=== PATIENT | female | born 1945 | race African-American/Black ===

== ENCOUNTER 2024-03-28 23:45 | Inpatient (IN) | payer OTHER, SELFPAY ==
[2024-03-28 17:27] VITALS: BP 120/81
[2024-03-28 17:48] LABS: % Basophils 0.3 % (0-2); % Eosinophils 0.6 % (0-6); % Immature Granulocytes 0.4 % (0-0.5); % Lymphocytes 11.5 % (20.5-51.1); % Monocytes 8.2 % (1.7-9.3); Absolute Eosinophils 0.1 10^3/uL (0-0.7); Absolute Lymphocytes 1.2 10^3/uL (1.2-3.4); Absolute Monocytes 0.8 10^3/uL (0.1-0.6); Hematocrit 34.4 % (37.0-47.0); Hemoglobin 12.1 g/dL (12.0-16.0); Mean Corp Hgb Conc. 35.2 g/dL (33.0-37.0); Mean Corpuscular Hgb 29.8 pg (27.0-31.0); Mean Corpuscular Volume 84.7 fL (81.0-99.0); Mean Platelet Volume 9.7 fL (7.4-10.4); Nucleated Red Blood Cells % 0 %; Platelet Count 206 10^3/uL (130-400); Red Blood Cell Count 4.06 10^6/uL (4.20-5.40); Red Cell Dist. Width 14.2 % (11.5-14.5); White Blood Cell Count 10.1 10^3/uL (4.8-10.8)
[2024-03-28 18:06] LABS: ALT (SGPT) 10 U/L (0-35); AST (SGOT) 21 U/L (14-36); Alkaline Phosphatase 86 U/L (38-126); Blood Urea Nitrogen 10 mg/dl (7-17); Calcium 9.5 mg/dl (8.4-10.2); Carbon Dioxide 20 mmol/L (22-30); Chloride 105 mmol/L (98-107); Glucose 138 mg/dl (70-99); Lipase 44 U/L (23-300); Potassium 3.6 mmol/L (3.5-5.1); Sodium 141 mmol/L (135-145); Total Bilirubin 3.4 mg/dl (0.2-1.3); Total Protein 6.7 g/dl (6.3-8.2); eGFR > 60.00
[2024-03-28 19:23] VITALS: BP 148/87
--- NOTE | 2024-03-28 19:58 | ED.GENMED ---
History of Present Illness
General
Chief Complaint: Change in Mental Status
Source: patient and family (Daughter)
Exam Limitations: dementia
Time Seen by Provider: 03/28/24 19:23
History of Present Illness
History of Present Illness:
This is a 78 year old female that comes in with c/o abd pain. Daughter states that she has not been eating or drinking for the past 2 weeks. State that she has gotten weak and more disoriented. State that she took her teeth out and then she started
with vomiting. State that she has c/o left sided abd pain. States that today she started with a fever. Denies any chills, chest pain,SOB, diarrhea, headache, dizziness, urinary burning.
Past History
Past History
ED Past Medical History: Hypercholesterolemia, NIDDM, Psychiatric (Bipolar ) and Other (Severe chronic back pain, Dementia, Hiatal hernia, IBS, Panreatitis, )
ED Past Surgical History: Gynecological (Hysterectomy), Orthopedic (Bilateral knee replacement, Bilateral hip replacement, Carpal tunnel, Laminectomy) and Other (Neuro stimulator implantation,)
Social History
Tobacco: Non-smoker
Alcohol: None
Personal:
Living: alone (Apartment in a [place] and over community)
Family History
Family History: Diabetes
Review of Systems
Review of Systems
All Other Systems: ROS reviewed and negative except as documented in HPI and ROS
Constitutional: Reports fever; Denies chills
EENT: Reports no symptoms
Respiratory: Reports no symptoms; Denies cough or trouble breathing
Cardiac: Reports no symptoms; Denies chest pain
ABD/GI: Reports abdominal pain, nausea and vomiting; Denies diarrhea
: Reports no symptoms; Denies dysuria, frequency or urgency
Musculoskeletal: Reports no symptoms
Skin: Reports no symptoms
Neurological: Reports no symptoms; Denies dizzy or headache
Psychiatric: Reports no symptoms
Phy Exam
General Physical Exam
General Presentation: no apparent distress
General age: appears stated age
General Skin: warm and dry
General Habitus: elderly
General Mental: usual mental status
General Hydration: dry mucous membranes
ENT Exam
ENT Exam: TM's normal, pharynx normal and neck supple
Eye Exam
Eye Exam: EOMI
Cardiovascular Exam
Cardiovascular Exam: regular rate/rhythm, no edema and normal peripheral pulses
Pulmonary Exam
Pulmonary Exam: lungs clear, no respiratory distress, no rales, chest non tender, no crackles, no rhonchi, no wheezing and no cough
Gastrointestinal Exam
Gastrointestinal Exam: normal bowel sounds, soft, no organomegaly, no pulsatile mass, non distended and tender (Slight left sided and mid abd tenderness with palpation)
Musculoskeletal Exam
Musculoskeletal Exam: full ROM and no edema
Skin Exam
Skin Exam: normal color, warm/dry, no rash and no petechia
Psychiatric Exam
Psychiatric Exam: normal mood/affect
Course
Orders/Labs/Results
Orders:
Orders
03/28/24 17:38
Complete Blood Count/With Diff Urgent
Comprehensive Metabolic Panel Urgent
Lipase Urgent
03/28/24 19:56
CT Abd/pelvis W Iv Cont Urgent
Comment:
Reason For Exam: LEFT SIDED ABD PAIN
0.9% Sodium Chloride 1000 ml [Nss] 1,000 ml IV BOLUS
Ondansetron Injectable [Zofran] 4 mg IV NOW STA
03/28/24 20:28
Urinalysis Reflex To Culture Urgent
Date Specimen was Collected: 03/28/24
Time Specimen was Collected: 20:01
Urine Microscopic Reflex Cult Urgent
Urine Culture Urgent
LYNN Source: U
Specimen Description:
Date Specimen was Collected: 03/28/24
Time Specimen was Collected: 20:01
03/28/24 20:40
Straight Cath As Directed
Frequency: One time now
03/28/24 21:59
CR Chest - 2 Views Urgent
Comment:
Reason For Exam: Fever
03/28/24 22:38
COVID-19 Antigen Urgent
Source: Nasal Swab
03/28/24 22:46
Azithromycin 500 mg/250 ml [Zithromax Infusion] 500 mg in 250 ml IV NOW
CefTRIAXone [Rocephin] 1,000 mg IV NOW STA
03/28/24 23:39
0.9% Sodium Chloride [Nss (Preservative Free)] 10 ml IV NOW STA
Pantoprazole [Protonix IV] 40 mg IV NOW STA
03/29/24 08:00
Pantoprazole [Protonix IV] 40 mg IV DAILY
Abnormal Lab Results
03/28/24 03/28/24
17:38 20:28
RBC 4.06 L 10^6/uL
(4.20-5.40)
Hct 34.4 L %
(37.0-47.0)
Absolute Neuts (auto) 8.0 H 10^3/uL
(1.4-6.5)
Absolute Monos (auto) 0.8 H 10^3/uL
(0.1-0.6)
Neutrophils % 79.0 H %
(42.2-75.2)
Lymphocytes % 11.5 L %
(20.5-51.1)
Carbon Dioxide 20 L mmol/L
(22-30)
Glucose 138 H mg/dl
(70-99)
Total Bilirubin 3.4 H mg/dl
(0.2-1.3)
Urine Ketones 2+ A
(Negative)
Urine Nitrite (Reflex) Positive A
(Negative)
Urine Bilirubin 2+ A
(Negative)
Urine Urobilinogen 4+ A
(Neg - 1+)
Leukocyte Esterase Rfl Trace A
(Negative)
Urine Bacteria (Reflex) Few A
(Negative)
03/28/24 17:38
03/28/24 17:38
Carbon dioxide slightly low. Hyperglycemia. Total braydon elevation (elevated in the past but not as high), Lipase normal at 44 COVID negative
Vital Signs
Initial and Last Documented VS:
Initial Vital Signs
Temp Pulse Resp BP Pulse Ox
100.6 F H 102 20 120/81 98
03/28/24 17:27 03/28/24 17:27 03/28/24 17:27 03/28/24 17:27 03/28/24 17:27
Last Documented Vital Signs
Temp Pulse Resp BP Pulse Ox
98.1 F 84 20 118/74 98
03/28/24 21:37 03/28/24 22:40 03/28/24 17:27 03/28/24 22:40 03/28/24 22:40
MDM/Problems Addressed
Differential Diagnosis Includes:
Gallbladder disease. Diverticulitis, UTI
MDM/Problems Addressed:
This is a 78 year old female that comes in with c/o abd pain. Daughter states that she has not been eating and feels that her dementia is worse.
Will check labs, urine, CT scan, give IV fluids and Zofran for her nausea
Back into see patient and son. Daughter has gone home. explained that the patient has a left lower lobe Pneumonia. Explained that her pulse ox is normal and that she could go home on antibiotics. Son states that she lives alone and her Dementia is
getting worse. States that there is no one there to make sure she is taking her medication. Will need to admit patient. Hospitalist notified.
Chronic conditions affecting care:
Dementia
Acute Exacerbation and/or Progression of Chronic Illness:
NA
*Radiology
Radiology exam reviewed: radiology read reviewed (CT-No significant acute abnormality identified in the abdomen or pelvis as described above. Chest-Left lower lobe Pneumonia)
*Pulse Oximetry
Patient hypoxic: no
*EKG
Interpreted by ED Provider?: NA
Rate: EKG- N/A
*Battery Tester Interpretation
Rate: Battery Tester- N/A
*Critical Care Note
Total Time (30-74mins, 75-104mins- exclusive of procedures): Not Applicable
ED Attending Note
-
Portions of this chart may have been created with voice recognition software.� Occasional wrong word or��sound alike� substitutions may have occurred due to the inherent limitations of voice recognition software.
Discharge Plan
Departure
Patient Disposition: Admit
Date of Disposition: 03/28/24
Time of Disposition: 22:50
Admit to: Med/Surg
Presentation/result/management discussed w/ accepting MD/DO: Hospitalist
Patient with high blood pressure during this ER visit?: No
Condition: Good
Covid-19: Negative COVID-19
Discharge Problem:
Left lower lobe pneumonia, Weakness, Dementia
Interventions
Interventions:
*Risk Screen - Suicide Last Done: 03/28/24 20:36
*Neglect/Abuse Screening Last Done: 03/28/24 20:36
ED- Neurological Assessment Last Done: 03/28/24 20:38
[2024-03-28 20:00] VITALS: BP 115/68
[2024-03-28 20:40] LABS: Urine Albumin Trace (Neg - Trace); Urine Bilirubin 2+ (Negative); Urine Character Clear (Clear); Urine Color Yellow; Urine Glucose Negative (Negative); Urine Ketone 2+ (Negative); Urine Leukocyte Trace (Negative); Urine Nitrite Positive (Negative); Urine Occult Blood Negative (Negative); Urine Specific Gravity 1.025 (<1.030); Urine Urobilinogen 4+ (Neg - 1+)
[2024-03-28 20:45] LABS: Urine Bacteria Few (Negative); Urine Mucus Many; Urine Red Blood Cell 0-2 /HPF (0-2); Urine Squamous Cell >30 /LPF (Few); Urine White Cell 0-2 /HPF (0-5)
[2024-03-28] MEDS: ZOFRAN 4 MG IV (21:04)
[2024-03-28] MEDS: NSS 1000 IV (21:05)
[2024-03-28 22:39] VITALS: BP 118/74
[2024-03-28 22:40] VITALS: BP 118/74
[2024-03-28 23:00] VITALS: BP 127/72
[2024-03-28 23:00] LABS: COVID-19 Antigen Negative (Negative)
--- NOTE | 2024-03-28 23:15 | HPS.HSE ---
Family Physician
-
Family Physician: Az Red MD
Chief Complaint
-
Cough, left and right upper abdominal pain, decreased appetite
History of Present Illness
78-year-old female from home where she lives alone in her condo complaining of coughing today and left and right upper abdominal pain. Her son is at bedside and states she has had decreased oral intake over the past 2 weeks. While here in the ER
she had an episode of vomiting. She was febrile here in the ER at 100.6 F she complains of left and right upper abdominal pain on palpation, although CT abdomen pelvis is negative. She is not complaining of any indigestion, diarrhea. She denies
headache, sore throat chest pain, shortness of breath, diarrhea ,dizziness or urinary symptoms. She has past medical history of HLD, DM2 bipolar disorder, severe chronic back pain, neurostimulator implant, dementia, hiatal hernia, IBS,
pancreatitis,nonbleeding erosions in gastric antrum
Medical History
Past Medical History
Past Medical History: Reports Other
Additional Past Medical History:
HLD
DM2-diet controlled
bipolar disorder
severe chronic back pain
neurostimulator implant with removal
dementia short-term mild�moderate
nonbleeding erosions in gastric antrum 01/11/2020
hiatal hernia
IBS
pancreatitis
Past Surgical History: Reports Other
Additional Past Surgical History:
Neurostimulator implant lumbar with removal per son
Laminectomy
Bilateral hip replacement
Bilateral knee replacement
Hysterectomy
CTR
Appendectomy 03/01/2020
Social History
Tobacco: Non-smoker
Alcohol: None
Drug: None
Personal: Single
Living: Alone (In a condo)
Employment: Retired
Family History
Family History: Unable to Obtain
Allergies / Home Medications
Allergies reflects when Allergies were last updated in [facility].
Home Medications with original date entered in [facility]
Allergy/Medication List:
Allergies
Allergy/AdvReac Type Severity Reaction Status Date / Time
No Known Allergies Allergy Verified 03/28/24 17:32
Home Medications
atorvastatin 10 mg tablet 10 mg PO HS High Cholesterol 04/25/23
donepezil 5 mg tablet 5 mg PO HS 03/28/24
naproxen 500 mg tablet 500 mg PO BID 03/28/24
Review of Systems
-
History Source: Patient and Family (Son Leonid at bedside)
A 12 point ROS was completed and negative except as noted: Yes
Constitutional: Reports Fever and Chills; Denies Fatigue
EENT: Denies Sore Throat or Runny Nose
Respiratory: Reports Cough; Denies Trouble Breathing
Cardiac: Denies Chest Pain, Diaphoresis, Palpitations or Syncope
Abdomen/GI: Reports Abdominal Pain (Left and right upper abdomen), Nausea and Vomiting (X 1 here in ER); Denies Diarrhea, Constipated, Bloody Stools or Black Stools
: Denies Dysuria, Frequency, Flank Pain, Incontinence or Difficulty Voiding
Musculoskeletal: Denies Joint Pain or Edema
Skin: Denies Itching or Rash
Neurological: Denies Dizzy, Headache or Weakness
Endocrine: Reports No Symptoms
Hematologic/Lymphatic: Reports No Symptoms
Psych: Reports Calm
Physical Exam
Vital Signs
Vital Signs
Temp Pulse Resp BP Pulse Ox
98.1 F 84 20 118/74 98
03/28/24 21:37 03/28/24 22:40 03/28/24 17:27 03/28/24 22:40 03/28/24 22:40
Physical Exam
General: Comfortable, Conversant and Fever; No Chills
HEENT: NormoCephalic, Anicteric, Moist mucous membranes, PERRLA, [place] Conjunctivae and No Ptosis
Respiratory: Rales (With some rhonchi left lower lung base right CTA)
Cardiac: S1/S2 and Regular Rhythm; No Murmur, Rub, Gallop or Peripheral Edema
Breast: Deferred by me
GI: Soft, Non Distended, Normal Bowel Sounds, Tender (Entire upper abdomen) and No Hepatosplenomegaly
Rectal: Deferred by Provider
Genito-urinary: Deferred by me
Musculoskeletal: No Clubbing, No Cyanosis and No Edema
Skin: Warm and Dry; No Rash or Jaundice
Neuro: AO x 3 (Has dementia with short-term memory impairment remember some of past history thinks she still lives in a house versus a condo), Cranial Nerves Intact and No Sensory Deficits; No Slurred Speech, Facial Droop, Tremors or Sedated
Psych: Calm
Laboratory Results
-
03/28/24 17:38
03/28/24 17:38
Laboratory Results
Total Bilirubin 3.4 mg/dl (0.2-1.3) H 03/28/24 17:38
AST 21 U/L (14-36) 03/28/24 17:38
ALT 10 U/L (0-35) 03/28/24 17:38
Alkaline Phosphatase 86 U/L (38-126) 03/28/24 17:38
Lipase 44 U/L (23-300) 03/28/24 17:38
Data Reviewed
-
Diagnostic Radiology: Report Reviewed by me
CT Scan: Report Reviewed by me
Lab Data: Labs Reviewed by me
Impression/Plan
-
Impression/plan:
Admit to MedSurg
#Left lower lobe pneumonia
Temp 100.6 F, HR 102, BP 118/74
-COVID-negative
-IV Rocephin, p.o. Zithromax
-Incentive spirometry
-Follow CBC, CMP
-Consult PT/OT/case management
CXR left lower lobe pneumonia
#Left and right upper abdominal pain secondary to likely gastritis from naproxen use with past history of nonbleeding erosions in gastric antrum
- HOLD Naproxen 500 mg twice daily
-Will add IV PPI
-IV Zofran as needed
-Advance diet as tolerated
Endoscopy 01/02/2020 nonbleeding erosive erosions in the gastric antrum, hiatal hernia medium sized, diaphragmatic hernia
#Dementia short-term dementia
-Lives alone in her own condo oriented to name, son, daughter knows some of history
-Continue Aricept 5 mg at bedtime at at bedtime
#HLD
-Continue atorvastatin 10 mg at bedtime
#DM2 former now diet controlled
-Check HgbA1c BS 138
#Bipolar disorder
-No current meds
#Severe chronic back pain
#neurostimulator implant with removal
-Tylenol as needed
Other PMH:
Hx hiatal hernia
Hx IBS
hx pancreatitis
DVT prophylaxis
Scd
Full code per son Leonid at bedside who is POA
--- NOTE | 2024-03-28 23:33 | W.PN.UPDATE ---
Addendum entered and electronically signed by Юлия Lyle MD 03/28/24 23:40:
Abdominal pain could be due to gastritis given history of gastric erosions previously. Start PPI.
Original Note:
Update Note
Progress Note Update
This is an addendum to the H&P written by Vita Espinoza on 03/28/2024. Patient seen and examined independently with [facility].
78-year-old female past medical history of IBS with constipation, hiatal hernia, dementia, bipolar depression, type 2 diabetes, chronic back pain with neurostimulator since removed, hyperlipidemia, iron deficiency anemia, presenting with abdominal
pain and an episode of vomiting today. She had fever today. She did have cough at home.
Left lower base crackles on examination. Low-grade fever here. Chest x-ray showed left lower lobe pneumonia. CT abdomen pelvis unremarkable. Urinalysis unremarkable. COVID-negative. Ceftriaxone/azithromycin for pneumonia.
[2024-03-28] MEDS: PROTONIX IV 40 MG IV (23:59)
[2024-03-29] VITALS: BP 130/86
[2024-03-29] MEDS: ZITHROMAX INFUSION 250 IV
[2024-03-29 01:00] VITALS: BP 116/68
[2024-03-29 05:55] LABS: % Basophils 0.4 % (0-2); % Eosinophils 0.2 % (0-6); % Immature Granulocytes 0.3 % (0-0.5); % Lymphocytes 11.6 % (20.5-51.1); % Monocytes 9.8 % (1.7-9.3); % Neutrophils 77.7 % (42.2-75.2); Absolute Lymphocytes 1.1 10^3/uL (1.2-3.4); Absolute Monocytes 0.9 10^3/uL (0.1-0.6); Absolute Neutrophils 7.2 10^3/uL (1.4-6.5); Hemoglobin 10.6 g/dL (12.0-16.0); Mean Corp Hgb Conc. 34.2 g/dL (33.0-37.0); Mean Corpuscular Hgb 29.4 pg (27.0-31.0); Mean Corpuscular Volume 85.9 fL (81.0-99.0); Mean Platelet Volume 9.5 fL (7.4-10.4); Nucleated Red Blood Cells % 0 %; Platelet Count 175 10^3/uL (130-400); Red Blood Cell Count 3.61 10^6/uL (4.20-5.40); White Blood Cell Count 9.2 10^3/uL (4.8-10.8)
[2024-03-29 06:00] VITALS: BMI 25.2
[2024-03-29 06:21] LABS: ALT (SGPT) < 10 U/L (0-35); AST (SGOT) 18 U/L (14-36); Albumin 3.4 g/dl (3.5-5.0); Alkaline Phosphatase 65 U/L (38-126); Blood Urea Nitrogen 10 mg/dl (7-17); Calcium 8.6 mg/dl (8.4-10.2); Carbon Dioxide 23 mmol/L (22-30); Chloride 108 mmol/L (98-107); Estimated Creatinine Clearance 57 ml/min; Glucose 105 mg/dl (70-99); Potassium 3.5 mmol/L (3.5-5.1); Sodium 146 mmol/L (135-145); Total Bilirubin 2.5 mg/dl (0.2-1.3); Total Protein 5.9 g/dl (6.3-8.2); eGFR > 60.00
[2024-03-29 07:06] LABS: Glucose - Point of Care 104 mg/dl (70-99)
[2024-03-29 08:30] VITALS: BP 115/63
[2024-03-29] MEDS: ZITHROMAX 250 MG PO (10:18)
[2024-03-29] MEDS: NSS (PRESERVATIVE FREE) 10 ML IV ×2 (10:19)
[2024-03-29] MEDS: PROTONIX IV 40 MG IV (10:19)
[2024-03-29 10:47] VITALS: BP 95/54; PULSE 79; O2SAT 97
[2024-03-29 11:46] LABS: Glucose - Point of Care 98 mg/dl (70-99)
--- NOTE | 2024-03-29 12:07 | W.PN.HOSP.TC ---
Today's Communication/Plan
-
IV abx
monitor po tolerance
IVF for now
trend bmp
pt/ot
cm
Assessment / Plan
Assessment / Plan
#Left lower lobe pneumonia
#Sepsis 2/2 above-poa
Temp 100.6 F, HR 102, BP 118/74
-COVID-negative
-IV Rocephin, p.o. Zithromax
-Incentive spirometry
-Follow CBC, CMP
-Consult PT/OT/case management
-CXR left lower lobe pneumonia
#Left and right upper abdominal pain secondary to likely gastritis from naproxen use with past history of nonbleeding erosions in gastric antrum
-HOLD Naproxen 500 mg twice daily
-Will add IV PPI
-IV Zofran as needed
-Advance diet as tolerated
#Hypernatremia likely 2/2 dec po intake
-started D5W
-trend bmp
#Dementia short-term dementia
-Lives alone in her own condo oriented to name, son, daughter knows some of history
-Continue Aricept 5 mg at bedtime at at bedtime
-may require placement. CM
#HLD
-Continue atorvastatin 10 mg at bedtime
#DM2 former now diet controlled
-Check HgbA1c BS 138
#Bipolar disorder
-No current meds
#Severe chronic back pain
#neurostimulator implant with removal
-Tylenol as needed
Other PMH:
Hx hiatal hernia
Hx IBS
hx pancreatitis
DVT prophylaxis
Scd
Full code per son Leonid at bedside who is POA
Anticipated Discharge: Within 24 hours
Subjective/Interval History
-
Date of Service: March 29, 2024
Denies any abdominal pain currently
On room air
Denies any chest pain or shortness of breath
Objective Data
-
Labs:
Laboratory Results
03/29/24
05:15
WBC 9.2
Hgb 10.6 L
Hct 31.0 L
Plt Count 175
Sodium 146 H
Potassium 3.5
Chloride 108 H
Carbon Dioxide 23
BUN 10
Creatinine 0.7
Glucose 105 H
Calcium 8.6
Total Bilirubin 2.5 H
AST 18
ALT < 10
Alkaline Phosphatase 65
Vital Signs:
Vital Signs
Temp Pulse Resp BP Pulse Ox
97.4 F 79 16 115/63 95
03/29/24 08:30 03/29/24 08:30 03/29/24 08:30 03/29/24 08:30 03/29/24 08:30
I&O
03/28/24 03/29/24 03/30/24
06:59 06:59 06:59
Intake Total 480 / 480
Balance 480 / 480
Physical Exam
-
General: Well Developed and No Apparent Distress
HEENT: Normocephalic, Atraumatic and Moist Mucous Membranes
Respiratory: Clear to Auscultation
Cardiac: Regular Rhythm and S1/S2; Negative Murmur, Rub or Gallop
GI: Soft, Nontender, Nondistended and Normal Bowel Sounds; Negative Organomegaly
Rectal: Deferred by Provider
Musculoskeletal: No Clubbing, No Cyanosis and No Edema
Skin: Negative Rash
Neuro: Awake and Nonfocal/Grossly Intact
Psych: Calm and Apparent Dementia
Data Reviewed
-
Total Time Spent with Patient (in minutes): 52
[2024-03-29] MEDS: D5/0.9% SODIUM CHLORIDE 500 IV (14:27)
--- NOTE | 2024-03-29 15:12 | VNURNOTE ---
Home Health Liaison spoke with patient's daughter Tia to discuss [facility] nurse/therapy, visits, schedule and homebound status. She 'just answered all these questions from the last person who called.' Verified address, 'This information should be in
her chart.' Daughter agreeable and understands that visits at home will be 2-3 x per week to assess and teach medical management. Daughter is aware that [facility] will contact them for start of care in 1-2 days after discharge from . [facility] referral
completed in [facility].
[2024-03-29 15:35] VITALS: BP 112/71
--- NOTE | 2024-03-29 16:21 | CM ---
Spoke with pt she said she was tired and asked CM to call Tia dgt.Spoke with Tia she said pt is assisted at [facility].Dgt her with meds prep , shower and meals made at [facility]. She uses cane.Offered VN dgt requested VN Liaison Asya notified .
[facility] hx /no SNF hx
Pharmacy [facility]
PCP Dr Red
PLAN Home with VN
[2024-03-29 16:48] LABS: Glucose - Point of Care 93 mg/dl (70-99)
[2024-03-29] MEDS: ARICEPT 5 MG PO (21:26)
[2024-03-29] MEDS: LIPITOR 10 MG PO (21:26)
[2024-03-29 21:49] LABS: Glucose - Point of Care 114 mg/dl (70-99)
[2024-03-29] MEDS: ROCEPHIN 1000 MG IV ×2 (23:40)
[2024-03-29 23:47] VITALS: BP 137/77
[2024-03-30 06:04] VITALS: BMI 25.3
[2024-03-30 06:10] LABS: % Basophils 0.2 % (0-2); % Eosinophils 0.7 % (0-6); % Immature Granulocytes 0.3 % (0-0.5); % Lymphocytes 7.4 % (20.5-51.1); % Monocytes 10.5 % (1.7-9.3); % Neutrophils 80.9 % (42.2-75.2); Absolute Eosinophils 0.1 10^3/uL (0-0.7); Absolute Lymphocytes 0.7 10^3/uL (1.2-3.4); Absolute Monocytes 0.9 10^3/uL (0.1-0.6); Absolute Neutrophils 7.2 10^3/uL (1.4-6.5); Hematocrit 30.6 % (37.0-47.0); Hemoglobin 10.5 g/dL (12.0-16.0); Mean Corp Hgb Conc. 34.3 g/dL (33.0-37.0); Mean Corpuscular Hgb 30.3 pg (27.0-31.0); Mean Corpuscular Volume 88.2 fL (81.0-99.0); Mean Platelet Volume 10.1 fL (7.4-10.4); Nucleated Red Blood Cells % 0 %; Platelet Count 176 10^3/uL (130-400); Red Blood Cell Count 3.47 10^6/uL (4.20-5.40); Red Cell Dist. Width 13.5 % (11.5-14.5); White Blood Cell Count 8.9 10^3/uL (4.8-10.8)
[2024-03-30 06:46] LABS: ALT (SGPT) < 10 U/L (0-35); AST (SGOT) 19 U/L (14-36); Albumin 3.2 g/dl (3.5-5.0); Alkaline Phosphatase 62 U/L (38-126); Blood Urea Nitrogen 8 mg/dl (7-17); Calcium 8.5 mg/dl (8.4-10.2); Carbon Dioxide 24 mmol/L (22-30); Chloride 105 mmol/L (98-107); Estimated Creatinine Clearance 57 ml/min; Glucose 115 mg/dl (70-99); Potassium 3.1 mmol/L (3.5-5.1); Sodium 141 mmol/L (135-145); Total Bilirubin 2.2 mg/dl (0.2-1.3); Total Protein 5.7 g/dl (6.3-8.2); eGFR > 60.00
[2024-03-30 07:27] VITALS: BP 110/66
[2024-03-30] MEDS: NSS (PRESERVATIVE FREE) 10 ML IV (08:51)
[2024-03-30] MEDS: PROTONIX IV 40 MG IV (08:51)
[2024-03-30] MEDS: ZITHROMAX 250 MG PO (08:51)
[2024-03-30] MEDS: KCL ELIXIR 40 MEQ PO (08:59)
--- NOTE | 2024-03-30 11:34 | W.PN.HOSP.TC ---
Today's Communication/Plan
-
CT abd/pelvis
remeron
assistance with feeding
cont abx
Assessment / Plan
Assessment / Plan
#Left lower lobe pneumonia
#Sepsis 2/2 above-poa
-COVID-negative
-IV Rocephin, p.o. Zithromax
-Incentive spirometry
-Blood culture negative. MRSA negative.
-Consult PT/OT/case management
-CXR left lower lobe pneumonia
#Left and right upper abdominal pain secondary to likely gastritis from naproxen use with past history of nonbleeding erosions in gastric antrum
-DC Naproxen 500 mg twice daily
-Cont with PPI
-IV Zofran as needed
-Check CT Abd/pelvis as with abd pain and weight loss.
#Hypernatremia likely 2/2 dec po intake
-s/p D5W
-trend bmp. Na improved
#Dementia short-term
#Moderate protein calorie malnutrition of chronic illness
-Lives alone in her own condo oriented to name, son, daughter knows some of history
-Continue Aricept 5 mg at bedtime at at bedtime
-may need appetite stimulant. Discussed with patient's son who agreed.
#HLD
-Continue atorvastatin 10 mg at bedtime
#DM2 former now diet controlled
-Check HgbA1c BS 114
#Bipolar disorder
-No current meds
#Severe chronic back pain
#neurostimulator implant with removal
-Tylenol as needed
Other PMH:
Hx hiatal hernia
Hx IBS
hx pancreatitis
DVT prophylaxis
Scd
Full code per son Leonid at bedside who is POA.
Updated son over the phone in detail
Anticipated Discharge: > 48 hours
Subjective/Interval History
-
Date of Service: March 30, 2024
remains with poor appetite-refusing to eat
no abd pain or nausea or vomiting
Objective Data
-
Labs:
Laboratory Results
03/30/24
05:23
WBC 8.9
Hgb 10.5 L
Hct 30.6 L
Plt Count 176
Sodium 141
Potassium 3.1 L
Chloride 105
Carbon Dioxide 24
BUN 8
Creatinine 0.7
Glucose 115 H
Calcium 8.5
Total Bilirubin 2.2 H
AST 19
ALT < 10
Alkaline Phosphatase 62
Vital Signs:
Vital Signs
Temp Pulse Resp BP Pulse Ox
99 F 89 16 110/66 97
03/30/24 07:27 03/30/24 07:27 03/30/24 07:27 03/30/24 07:27 03/30/24 07:27
I&O
03/29/24 03/30/24 03/31/24
06:59 06:59 06:59
Intake Total 480 / 480
Balance 480 / 480
Physical Exam
-
General: Well Developed and No Apparent Distress
HEENT: Normocephalic, Atraumatic and Moist Mucous Membranes
Respiratory: Clear to Auscultation
Cardiac: Regular Rhythm and S1/S2; Negative Murmur, Rub or Gallop
GI: Soft, Nontender, Nondistended and Normal Bowel Sounds; Negative Organomegaly
Rectal: Deferred by Provider
Musculoskeletal: No Clubbing, No Cyanosis and No Edema
Skin: Negative Rash
Neuro: Awake and Nonfocal/Grossly Intact
Psych: Calm and Apparent Dementia
Data Reviewed
-
Total Time Spent with Patient (in minutes): 55
[2024-03-30 12:52] VITALS: BMI 25.3
[2024-03-30] MEDS: OMNIPAQUE 50 ML PO (14:11)
[2024-03-30 15:18] VITALS: BP 135/71
--- NOTE | 2024-03-30 15:42 | PN.CDI ---
CDI
- -
CDI:
Physician Documentation Request
Admit Date: 03/28/24 23:45
Dear Doctor Jonna,
Clinical Indicators:
Patient admitted with sepsis and pneumonia.
Potassium Elixir 40 meq po x 1.
Potassium level:
03/30/24
05:23
Potassium 3.1 L
Based on the above, could you clarify in the progress notes, the appropriate diagnosis, if significant, that supports the above abnormalities and additional evaluation, monitoring and/or treatment rendered:
Hypokalemia
Abnormal lab value,clinically insignificant
Other
Use of terms such as suspected, likely, concern for, or probable (associated with a specific diagnosis that is being evaluated, monitored, or treated as if it exists) are acceptable and can be coded in the inpatient setting, when documented at the
time of discharge.
Thank you,
Stacey Girard RN BSN
CDI Specialist
available via [employer] text
Please use your independent medical judgment in providing your response.
--- NOTE | 2024-03-30 16:39 | CM ---
Spoke with pt in room.
PT OT recommended VN .
Dgt had requested [facility] Referral is accpeted.
Reviewed with pt that [facility] will see her at home .
She agreed with [facility] at Home.
PLAN Home with [facility]
[2024-03-30] MEDS: LOVENOX 40 MG SC (18:45)
[2024-03-30] MEDS: REMERON 7.5 MG PO (21:24)
[2024-03-30] MEDS: ARICEPT 5 MG PO (21:24)
[2024-03-30] MEDS: LIPITOR 10 MG PO (21:24)
[2024-03-30] MEDS: STERILE WATER FOR INJECTION 10 ML IV (23:31)
[2024-03-30] MEDS: ROCEPHIN 1000 MG IV (23:31)
[2024-03-30 23:33] VITALS: BP 150/86
[2024-03-31 06:28] VITALS: BMI 25.3
[2024-03-31 06:33] LABS: Blood Urea Nitrogen 7 mg/dl (7-17); Calcium 8.7 mg/dl (8.4-10.2); Carbon Dioxide 25 mmol/L (22-30); Chloride 105 mmol/L (98-107); Estimated Creatinine Clearance 57 ml/min; Glucose 116 mg/dl (70-99); Magnesium 1.7 mg/dl (1.6-2.3); Phosphorus 2.7 mg/dl (2.5-4.5); Potassium 3.2 mmol/L (3.5-5.1); Sodium 140 mmol/L (135-145); eGFR > 60.00
[2024-03-31 07:42] VITALS: BP 120/69
[2024-03-31] MEDS: KCL 270 MEQ IV (08:39)
[2024-03-31] MEDS: NSS (PRESERVATIVE FREE) 10 ML IV (08:42)
[2024-03-31] MEDS: PROTONIX IV 40 MG IV (08:42)
[2024-03-31] MEDS: ZITHROMAX 250 MG PO (08:42)
[2024-03-31 09:29] LABS: Glycohemoglobin (HgbA1c) 5.2 % (4.0-5.6)
--- NOTE | 2024-03-31 14:05 | W.PN.HOSP.TC ---
Today's Communication/Plan
-
Cont with abx
encourage/assistance with feeding
Gi input
Assessment / Plan
Assessment / Plan
#Left lower lobe pneumonia
#Sepsis 2/2 above-poa
-COVID-negative
-IV Rocephin, p.o. Zithromax
-Incentive spirometry
-Blood culture negative. MRSA negative.
-Consult PT/OT/case management
-CXR left lower lobe pneumonia
#Epigastric upper abdominal pain secondary to likely gastritis from naproxen use with past history of nonbleeding erosions in gastric antrum
#Concern for colonic lesion
-DC Naproxen 500 mg twice daily
-Cont with PPI
-IV Zofran as needed
-Check CT Abd/pelvis w/ po/iv contrast as with abd pain and weight loss. Bowel: Visualized portions without intestinal obstruction. Somewhat relative paucity of oral contrast which does not opacify large bowel.Of particular note, large bowel mass
cannot be excluded.
-Will ask GI for input.
#Hypernatremia likely 2/2 dec po intake
-s/p D5W
-trend bmp. Na improved
#Dementia short-term
#Moderate protein calorie malnutrition of chronic illness
-Lives alone in her own condo oriented to name, son, daughter knows some of history
-Continue Aricept 5 mg at bedtime at at bedtime
-may need appetite stimulant. Discussed with patient's son who agreed.
#HLD
-Continue atorvastatin 10 mg at bedtime
#DM2 former now diet controlled
#Bipolar disorder
-No current meds
#Severe chronic back pain
#neurostimulator implant with removal
-Tylenol as needed
Hypokalemia
-replete/monitor
Other PMH:
Hx hiatal hernia
Hx IBS
hx pancreatitis
DVT prophylaxis
Scd
Full code per son Leonid at bedside who is POA.
Updated son over the phone in detail on 03/30
Anticipated Discharge: > 48 hours
Subjective/Interval History
-
Date of Service: March 31, 2024
states of abd pain-epigastric region
no nausea or vomiting
remains with poor appetite
Objective Data
-
Labs:
Laboratory Results
03/31/24
05:22
Sodium 140
Potassium 3.2 L
Chloride 105
Carbon Dioxide 25
BUN 7
Creatinine 0.7
Glucose 116 H
Calcium 8.7
Vital Signs:
Vital Signs
Temp Pulse Resp BP Pulse Ox
98.7 F 87 16 120/69 99
03/31/24 07:42 03/31/24 07:42 03/31/24 07:42 03/31/24 07:42 03/31/24 07:42
I&O
03/30/24 03/31/24 04/01/24
06:59 06:59 06:59
Intake Total 480 / 480 580 / 580
Balance 480 / 480 580 / 580
Physical Exam
-
General: Well Developed and No Apparent Distress
HEENT: Normocephalic, Atraumatic and Moist Mucous Membranes
Respiratory: Clear to Auscultation
Cardiac: Regular Rhythm and S1/S2; Negative Murmur, Rub or Gallop
GI: Soft, Nontender, Nondistended and Normal Bowel Sounds; Negative Organomegaly
Rectal: Deferred by Provider
Musculoskeletal: No Clubbing, No Cyanosis and No Edema
Skin: Negative Rash
Neuro: Awake and Nonfocal/Grossly Intact
Psych: Calm and Apparent Dementia
Data Reviewed
-
Total Time Spent with Patient (in minutes): 51
[2024-03-31 15:14] VITALS: BP 121/76
--- NOTE | 2024-03-31 15:29 | CON.GI ---
Addendum entered and electronically signed by Karena Thompson DO 03/31/24 16:38:
I saw and examined the patient.
The [employer] PREVENTION HEALTH EDUCATOR or PA's note was reviewed and I agree with the note.
Comment:
Briefly, Deedee Phelps is a 77 y.o. with pmhx dementia, NIDDM, history of pancreatic dilation s/p EUS x2, erosive gastropathy, chronic abdominal pain, chronic constipation admitted with acute on chronic abdominal pain, decreased PO intake and low grade
favor. Imaging demonstrated pneumonia and new moderate pleural effusion and left pleural effusion. She had 2 CT scans without PO contrast-- the first without mention of the bowel, the 2nd of which was limited, but unable to exclude large bowel mass.
Patient is an extremely poor historian, unable to answer the last BM she had. She points to all over her abdomen as source of discomfort. This is a chronic issue with her and suspect this is due to constipation vs. pneumonia.
Agree with plan as outlined below. Needs adequate bowel regimen and treatment of her pneumonia. Outpatient follow-up with GI at which point we can schedule her for surveillance colonoscopy, though, would want to discuss risks/benefits given her
dementia. No plans for inpatient endoscopic evaluation.
GI will sign off, please call with questions.
Original Note:
Consultation
-
Date/Time Consultation Requested: 03/31/24 1415
Date/Time Consultation Performed: 03/31/24 1530
Requesting Provider: Fernando Coyle MD
Performing Provider: LUÍS Perez, Cleo Thompson DO
Reason for Consultation: abdominal pain, decreased po intakes
Medical History
Chief Complaint / HPI
Chief Complaint: constipation, abdominal pain
History of Present Illness:
Pt is a 77yo presents with hx NIDDM, dementia, pancreatic ductal dilation with EUS x2, erosive gastropathy, chronic abdominal pain, constipation with evaluation in 2022. She now presents with upper abdominal pain with decrease oral intakes over
next 2 weeks. She was noted with vomiting in ER and fever low grade 100.6. On admission CT was completed with concern for new moderate effusion and left pleural effusion with concern for PNA and limited opacification large bowel mass note
excluded. Last colonoscopy 2019 with TA polyps and recommended 3 year follow up.
At this time patient vague historian but admits to some abdominal pain but slight improvement today. She in unable to states what makes pain better or worse. She denies dysphagia, GERD, diarrhea, constipation or rectal bleeding. labs on
admission with normal WBC, stable hbg 12.1 with some drop in 10.5 after admission and hypokalemia.
Past Medical History
Past Medical History: Hypercholesterolemia, NIDDM, Psychiatric (dementia, depression) and Other (chronic neck pain, pancreatic ductal dilation with EUS x2, erosive gastropathy)
Past Surgical History: Gynecological (hysterectomy), Orthopedic (lami, b/l hip surgery, b/l knee surgery, carpel tunnel, ERCP 2004) and Other (neurostimulator)
Social History
Tobacco: Non-Smoker
Alcohol: None
Drug: None
Employment: Retired
Family History
Family History: Other (no family hx colon CA or polyps)
Allergies / Home Medications
Allergy/AdvReac Type Severity Reaction Status Date / Time
No Known Allergies Allergy Verified 03/28/24 17:32
�Medication �Instructions �Recorded
atorvastatin 10 mg tablet 10 mg PO HS High Cholesterol 04/25/23
donepezil 5 mg tablet 5 mg PO HS dementia 03/28/24
naproxen 500 mg tablet 500 mg PO BID Pain 03/28/24
Review of Systems
-
History Source: Patient
Constitutional: Reports No Symptoms
EENT: Reports No Symptoms
Respiratory: Reports No Symptoms
Cardiac: Reports No Symptoms
Abdomen/GI: Reports Abdominal Pain, Nausea, Vomiting and Constipated
: Reports No Symptoms
Musculoskeletal: Reports Other (chronic back pain)
Neurological: Reports Weakness
Endocrine: Reports No Symptoms
Hematologic/Lymphatic: Reports No Symptoms
Vital Signs
Temp Pulse Resp BP Pulse Ox
98.8 F 89 16 121/76 98
03/31/24 15:14 03/31/24 15:14 03/31/24 15:14 03/31/24 15:14 03/31/24 15:14
Physical Exam
Exam
General: Well Developed, Well Nourished and No Apparent Distress
HEENT: Normocephalic and Anicteric
Respiratory: Clear
Cardiac: Regular Rhythm
GI: Soft, Non Tender and Non Distended
Musculoskeletal: No Clubbing and No Cyanosis
Skin: Warm and Dry
Neuro: Awake, Alert and Other (forgetful at times)
Psych: Calm
Results
WBC 8.9 10^3/uL (4.8-10.8) 03/30/24 05:23
Hgb 10.5 g/dL (12.0-16.0) L 03/30/24 05:23
Hct 30.6 % (37.0-47.0) L 03/30/24 05:23
MCV 88.2 fL (81.0-99.0) 03/30/24 05:23
Plt Count 176 10^3/uL (130-400) 03/30/24 05:23
Absolute Neuts (auto) 7.2 10^3/uL (1.4-6.5) H 03/30/24 05:23
Sodium 140 mmol/L (135-145) 03/31/24 05:22
Potassium 3.2 mmol/L (3.5-5.1) L 03/31/24 05:22
Chloride 105 mmol/L (98-107) 03/31/24 05:22
Carbon Dioxide 25 mmol/L (22-30) 03/31/24 05:22
BUN 7 mg/dl (7-17) 03/31/24 05:22
Creatinine 0.7 mg/dL (0.6-1.0) 03/31/24 05:22
Calcium 8.7 mg/dl (8.4-10.2) 03/31/24 05:22
Total Bilirubin 2.2 mg/dl (0.2-1.3) H 03/30/24 05:23
AST 19 U/L (14-36) 03/30/24 05:23
ALT < 10 U/L (0-35) 03/30/24 05:23
Alkaline Phosphatase 62 U/L (38-126) 03/30/24 05:23
Lipase 44 U/L (23-300) 03/28/24 17:38
Diagnostic Image Results:
04/27/23 CT without IV contrast
�There is no CT evidence for diverticulitis.The appendix is not visualized and there is a staple line in the region of the inferior cecum, possibly from previous appendectomy.No evidence for bowel obstruction. No evidence of free intraperitoneal air.
Fatty infiltration of the liver.The pancreatic duct is dilated within the body, neck, and head of the pancreas, measuring up to 5 mm, stable appearance from CT of January 30, 2021. No evidence of a pancreatic mass lesion.Bony degenerative changes
as described. Note, there is significant bilateral foraminal narrowing within the lower lumbar spine and lumbosacral junction.
04/25/23 US abdomen
Normal appearance of the gallbladder with no evidence for biliary ductal dilation.
Diffuse fatty infiltration of the liver.
The pancreatic head and tail are not well visualized, with shadowing from overlying bowel gas.
01/02/20 EUS�� - Chronically dilated pancreatic duct, no significant
�� � � � � � � � � � change compared to EUS done in 2005 from [facility].
�� � � � � � � � � � - Normal CBD
�� � � � � � � � � � - No lymphadenopathy
Prior GI Procedures:
EGD: 12/2019 �[facility]� � - Z-line irregular. Biopsied.
�� � � � � � � � � � - Non-bleeding erosive gastropathy. Biopsied.
�� � � � � � � � � � - Normal examined duodenum. Biopsied.
�� � � � � � � � � � - Medium-sized hiatal hernia.
bx neg celiac, metaplasia, H pylori
bx neg
Colonoscopy 12/2019- [facility] - Normal mucosa in the cecum. Biopsied.
- One 3 mm polyp in the ascending colon, removed with a
jumbo cold forceps. Resected and retrieved.
- One 5 mm polyp in the transverse colon, removed with a
cold snare. Resected and retrieved.
- One 8 mm polyp in the descending colon, removed with a
hot snare. Resected and retrieved.
- Non-bleeding internal hemorrhoids.
bx TA polyps, cecal polyp colonic mucosa
recommended 3 year follow up
2004- MRI- dilation of pancreatic duct and to lesser degree common bile duct.� suggest soft tissue mass at confluence of 2 ducts and protruding to duodenum, concerning for neoplasm, pancreatic head carcinoma possible but less likely
2004- ERCP- dilated CBD without evidence obvious stenosis possible papillary stenosis PD tumor not excluded as duct not cannulated referred for EUS
Assessment / Plan
-
Pt is a 77yo presents with hx NIDDM, dementia, pancreatic ductal dilation with EUS x2, erosive gastropathy, chronic abdominal pain, constipation with evaluation in 2022. She now presents with upper abdominal pain with decrease oral intakes over
next 2 weeks. She was noted with vomiting in ER and fever low grade 100.6. On admission CT was completed with concern for new moderate effusion and left pleural effusion with concern for PNA and limited opacification large bowel mass note
excluded. Last colonoscopy 2019 with TA polyps and recommended 3 year follow up.
-PNA on admission
-abdominal pain with nausea/vomiting
-CT with concern for limited large bowel opacification
-constipation on prior evaluation
-chronic dilation of pancreatic duct with EUS x 2 last 2019
-hx erosive gastropathy on prior EGD
-hx colon polyp overdue for colonoscopy
other medical Problems:
-DM
-depression
-dementia
-chronic back pain with stimulator
-hysterectomy
-lami
-prior Appe
PLAN:
Etiology of decreased appetite related to PNA vs underlying constipation with abdominal pain as noted in past vs other
pt also noted with prior abdominal pain evaluation with possible referred back pain
continue to treat PNA
add Miralax and senna daily to treat constipation as noted some stool burden on current imaging
when improved from PNA standpoint OP follow up to discuss want to proceed with repeat colonoscopy for polyp and abnormal cT with limited bowel opacification
hbg stable no signs of aggressive bleeding
pancreatic duct issues also longstanding with EUS x 2 in past
cont diet as tolerated
OP follow up information left on discharge
-
-
Thank you for consultation and allowing me to participate in the patient's care. Please call the insulation board calender operator GI physician during the after hours with any questions or concerns.
--- NOTE | 2024-03-31 16:45 | CM ---
PT OT recommended VN .
Dgt had requested [facility] Referral is accepted.
Reviewed with pt that [facility] will see her at home .
She agreed with [facility] at Home.
PLAN Home with [facility]
[2024-03-31] MEDS: MIRALAX PO (17:04)
[2024-03-31] MEDS: MIRALAX 17 GRAMS PO (18:31)
[2024-03-31] MEDS: LOVENOX 40 MG SC (18:31)
[2024-03-31] MEDS: REMERON PO ×2 (20:25→20:29)
[2024-03-31] MEDS: ARICEPT PO ×2 (20:25→20:29)
[2024-03-31] MEDS: SENOKOT PO ×2 (20:25→20:29)
[2024-03-31] MEDS: LIPITOR 10 MG PO (20:25)
[2024-03-31 23:00] VITALS: BP 131/66
[2024-04-01] MEDS: ROCEPHIN 1000 MG IV (00:35)
[2024-04-01] MEDS: STERILE WATER FOR INJECTION 10 ML IV (00:36)
[2024-04-01 06:00] VITALS: BMI 25.3
[2024-04-01 06:44] LABS: Blood Urea Nitrogen 8 mg/dl (7-17); Calcium 8.7 mg/dl (8.4-10.2); Carbon Dioxide 26 mmol/L (22-30); Chloride 107 mmol/L (98-107); Estimated Creatinine Clearance 57 ml/min; Glucose 96 mg/dl (70-99); Potassium 3.4 mmol/L (3.5-5.1); Sodium 145 mmol/L (135-145); eGFR > 60.00
[2024-04-01 07:00] VITALS: BP 101/59
[2024-04-01] MEDS: PROTONIX IV 40 MG IV (07:59)
[2024-04-01] MEDS: NSS (PRESERVATIVE FREE) 10 ML IV (07:59)
[2024-04-01] MEDS: ZITHROMAX 250 MG PO (08:00)
[2024-04-01] MEDS: MIRALAX 17 GRAMS PO (08:00)
[2024-04-01 08:21] LABS: Glucose - Point of Care 150 mg/dl (70-99)
[2024-04-01] MEDS: KCL 160 MEQ IV (08:59)
[2024-04-01 12:31] LABS: Glucose - Point of Care 155 mg/dl (70-99)
--- NOTE | 2024-04-01 12:36 | W.PN.HOSP.TC ---
Today's Communication/Plan
-
Continue with mirtazapine
Continue with antibiotic
Start disposition planning
Monitor p.o. intake
Assessment / Plan
Assessment / Plan
#Left lower lobe pneumonia
#Sepsis 2/2 above-poa
-COVID-negative
-IV Rocephin, p.o. Zithromax and should be able to complete course of antibiotic during hospitalization.
-Incentive spirometry
-Blood culture negative. MRSA negative.
-Consult PT/OT/case management
-CXR left lower lobe pneumonia
#Epigastric upper abdominal pain secondary to likely gastritis from naproxen use with past history of nonbleeding erosions in gastric antrum
# Abdominal pain seems to be chronic history of constipation, pancreatic dilatation status post EUS x 2, gastropathy
-DC Naproxen 500 mg twice daily
-Cont with PPI
-IV Zofran as needed
-Check CT Abd/pelvis w/ po/iv contrast as with abd pain and weight loss. Bowel: Visualized portions without intestinal obstruction. Somewhat relative paucity of oral contrast which does not opacify large bowel.Of particular note, large bowel mass
cannot be excluded.
-GI added bowel regimen and I recommended outpatient follow-up if patient amenable to colonoscopy.
#Hypernatremia likely 2/2 dec po intake
-s/p D5W
-trend bmp. Na improved
#Dementia short-term
#Moderate protein calorie malnutrition of chronic illness
-Lives alone in her own condo oriented to name, son, daughter knows some of history
-Continue Aricept 5 mg at bedtime at at bedtime
-may need appetite stimulant. Discussed with patient's son who agreed.
#HLD
-Continue atorvastatin 10 mg at bedtime
#DM2 former now diet controlled
#Bipolar disorder
-No current meds
#Severe chronic back pain
#neurostimulator implant with removal
-Tylenol as needed
Hypokalemia
-replete/monitor
Other PMH:
Hx hiatal hernia
Hx IBS
hx pancreatitis
DVT prophylaxis
Scd
Full code
Discussed with patient daughter Vianey who has medical POA and explained to her patient hospitalization so far. Patient with advanced dementia and refusing medications and meals intermittently. She agreed for patient to be started on appetite
stimulant and bowel regimen. Also recommended UTI to follow-up with her primary gastroenterology as outpatient for colonoscopy if no improvement in abdominal symptomology.
Anticipated Discharge: Within 24 hours
Subjective/Interval History
-
Date of Service: April 01, 2024
sitting in chair
eating breakfast
afebrile
on room air
Objective Data
-
Labs:
Laboratory Results
04/01/24
05:52
Sodium 145
Potassium 3.4 L
Chloride 107
Carbon Dioxide 26
BUN 8
Creatinine 0.7
Glucose 96
Calcium 8.7
Vital Signs:
Vital Signs
Temp Pulse Resp BP Pulse Ox
98.6 F 84 12 101/59 94
04/01/24 07:00 04/01/24 07:00 04/01/24 07:00 04/01/24 07:00 04/01/24 07:00
I&O
03/31/24 04/01/24 04/02/24
06:59 06:59 06:59
Intake Total 580 / 580 60 / 60
Output Total 0 / 0
Balance 580 / 580 60 / 60
Physical Exam
-
General: Well Developed and No Apparent Distress
HEENT: Normocephalic, Atraumatic and Moist Mucous Membranes
Respiratory: Clear to Auscultation
Cardiac: Regular Rhythm and S1/S2; Negative Murmur, Rub or Gallop
GI: Soft, Nontender, Nondistended and Normal Bowel Sounds; Negative Organomegaly
Rectal: Deferred by Provider
Musculoskeletal: No Clubbing, No Cyanosis and No Edema
Skin: Negative Rash
Neuro: Awake and Nonfocal/Grossly Intact
Psych: Calm and Apparent Dementia
Data Reviewed
-
Total Time Spent with Patient (in minutes): 55
[2024-04-01 15:00] VITALS: BP 142/66
[2024-04-01 17:06] LABS: Glucose - Point of Care 88 mg/dl (70-99)
[2024-04-01] MEDS: LOVENOX 40 MG SC (17:32)
[2024-04-01] MEDS: REMERON 7.5 MG PO (19:58)
[2024-04-01] MEDS: ARICEPT 5 MG PO (19:58)
[2024-04-01] MEDS: LIPITOR 10 MG PO (19:59)
[2024-04-01] MEDS: SENOKOT 17.2 MG PO (20:00)
[2024-04-01 21:34] LABS: Glucose - Point of Care 98 mg/dl (70-99)
[2024-04-01 23:00] VITALS: BP 158/95
[2024-04-02] MEDS: ROCEPHIN 1000 MG IV (02:08)
[2024-04-02] MEDS: STERILE WATER FOR INJECTION 10 ML IV (02:08)
[2024-04-02 06:00] VITALS: BMI 25.1
[2024-04-02 06:05] LABS: Blood Urea Nitrogen 7 mg/dl (7-17); Calcium 8.7 mg/dl (8.4-10.2); Carbon Dioxide 25 mmol/L (22-30); Chloride 107 mmol/L (98-107); Estimated Creatinine Clearance 57 ml/min; Glucose 97 mg/dl (70-99); Potassium 3.6 mmol/L (3.5-5.1); Sodium 142 mmol/L (135-145); eGFR > 60.00
[2024-04-02 07:00] VITALS: BP 116/61
[2024-04-02] MEDS: NSS (PRESERVATIVE FREE) 10 ML IV (07:43)
[2024-04-02] MEDS: MIRALAX 17 GRAMS PO (07:43)
[2024-04-02] MEDS: PROTONIX IV 40 MG IV (07:43)
[2024-04-02 07:52] LABS: Glucose - Point of Care 97 mg/dl (70-99)
--- NOTE | 2024-04-02 10:14 | W.PN.HOSP.TC ---
Addendum entered and electronically signed by Fernando Coyle MD 04/02/24 10:30:
Correction patient/family will need to make appointment to follow-up with the aluminizer and DOES NOT already have appointment set up.
Called daughter to Update. No response left voicemail.
Original Note:
Today's Communication/Plan
-
dc home [facility]
OP GI f/u
Assessment / Plan
Assessment / Plan
#Left lower lobe pneumonia
#Sepsis 2/2 above-poa
-COVID-negative
-IV Rocephin, p.o. Zithromax and completed course of antibiotic during hospitalization.
-Incentive spirometry
-Blood culture negative. MRSA negative.
-Consult PT/OT/case management. Stable on room air. Afebrile.
-CXR left lower lobe pneumonia. Recommend repeat CXR to assess for resolution in 4-6 weeks.
#Epigastric upper abdominal pain secondary to likely gastritis from naproxen use with past history of nonbleeding erosions in gastric antrum
# Abdominal pain seems to be chronic history of constipation, pancreatic dilatation status post EUS x 2, gastropathy
-DC Naproxen 500 mg twice daily
-switch to po ppi
-Check CT Abd/pelvis w/ po/iv contrast as with abd pain and weight loss. Bowel: Visualized portions without intestinal obstruction. Somewhat relative paucity of oral contrast which does not opacify large bowel.Of particular note, large bowel mass
cannot be excluded.
-GI added bowel regimen and recommended outpatient follow-up if patient amenable to colonoscopy. Pt already has OP GI appt on 04/10.
#Hypernatremia likely 2/2 dec po intake
-s/p D5W
-trend bmp. Na improved
#Dementia short-term
#Moderate protein calorie malnutrition of chronic illness
-Lives alone in her own condo oriented to name, son, daughter knows some of history
-Continue Aricept 5 mg at bedtime at at bedtime
-may need appetite stimulant. Discussed with patient's son who agreed.
#HLD
-Continue atorvastatin 10 mg at bedtime
#DM2 former now diet controlled
#Bipolar disorder
-No current meds
#Severe chronic back pain
#neurostimulator implant with removal
-Tylenol as needed
Hypokalemia
-replete/monitor
Other PMH:
Hx hiatal hernia
Hx IBS
hx pancreatitis
DVT prophylaxis
Scd
Full code
Discussed with patient daughter Vianey who has medical POA on 04/01 and explained to her patient hospitalization so far. Patient with advanced dementia and refusing medications and meals intermittently. She agreed for patient to be started on appetite
stimulant and bowel regimen. Also recommended to follow-up with her primary gastroenterology. Per daughter, pt has appt wtih her primary aluminizer on 04/10.
More than 30 minutes spent in discharge including
Final examination of the patient
Summarizing hospital stay
Instructions for continuing care to all relevant caregivers
Preparation of discharge records, prescriptions, and referral forms
Total time spent (in minutes): 53
Anticipated Discharge: Today
Subjective/Interval History
-
Date of Service: April 02, 2024
denies abd pain
remains with poor appetite
Objective Data
-
Labs:
Laboratory Results
04/02/24
05:13
Sodium 142
Potassium 3.6
Chloride 107
Carbon Dioxide 25
BUN 7
Creatinine 0.7
Glucose 97
Calcium 8.7
Vital Signs:
Vital Signs
Temp Pulse Resp BP Pulse Ox
98.5 F 85 20 116/61 99
04/02/24 07:00 04/02/24 07:00 04/02/24 07:00 04/02/24 07:00 04/02/24 07:00
I&O
04/01/24 04/02/24 04/03/24
06:59 06:59 06:59
Intake Total 60 / 60 640 / 640 240 / 240
Output Total 0 / 0 480 / 480
Balance 60 / 60 640 / 640 -240 / -240
Physical Exam
-
General: Well Developed and No Apparent Distress
HEENT: Normocephalic, Atraumatic and Moist Mucous Membranes
Respiratory: Clear to Auscultation
Cardiac: Regular Rhythm and S1/S2; Negative Murmur, Rub or Gallop
GI: Soft, Nontender, Nondistended and Normal Bowel Sounds; Negative Organomegaly
Rectal: Deferred by Provider
Musculoskeletal: No Clubbing, No Cyanosis and No Edema
Skin: Negative Rash
Neuro: Awake and Nonfocal/Grossly Intact
Psych: Calm and Apparent Dementia
--- NOTE | 2024-04-02 10:22 | W.DCSUMMARY ---
Discharge Summary
Discharge Data
Date of Admission: 03/28/24
Date of Discharge: 04/02/24
-
Pending Results: No
Hospital Course
78-year-old male past with hyperlipidemia bipolar disorder, ulcerative chronic back pain, status post neurostimulator implant status post removal, dementia, gastritis, pancreatic dilatation status post EUS, chronic history of constipation was
presenting with nausea abdominal pain found to have sepsis secondary to pneumonia. Patient will start on ceftriaxone and Zithromax. Patient finished course of antibiotics. Blood cultures were negative. Patient was stable on room air. Recommend
repeat chest x-ray to assess for resolution. Underwent abdominal CAT scan po/iv contrast as with abd pain and weight loss. Bowel: Visualized portions without intestinal obstruction. Somewhat relative paucity of oral contrast which does not opacify
large bowel.Of particular note, large bowel mass cannot be excluded. GI was consulted and recommend outpatient follow-up if patient family amenable to colonoscopy. Patient was on a bowel regimen. Patient improvement in abdominal pain. Patient
was on PPI. Patient with hyponatremia which resolved with IV fluid resuscitation. Patient also with decreased appetite and after discussion with patient and daughter and son patient was on an appetite stimulant. Patient was afebrile and on room
air. Patient will be discharged home with recommendation to follow-up outpatient with gastroenterology and primary doctor.
Discharge Plan
-
Patient Disposition: Home with Home Care
Discharge Diagnosis/Procedures: Sepsis due to left lower lobe pneumonia
Hypernatremia
Abdomen pain
Condition: Fair
Activity: With assistance and As tolerated
Driving Restrictions: No driving
Others Tests: Repeat chest x-ray in 4 to 6 weeks to assess for resolution of pneumonia via primary doctor
Referrals:
Az Red MD [Family Provider] - in less than 1 week
Karena Thompson DO [Active] - (call GI office to arrange OP evaluation after admission to discuss colonoscopy with hx polyps and abnormal CT when improved from pneumonia. )
Prescriptions:
New
polyethylene glycol 3350 [HealthyLax] 17 gram Powder In Packet
17 g PO DAILY Qty: 30 0RF
sennosides [Senna Laxative] 8.6 mg Tablet
17.2 mg PO HS 30 Days Qty: 60 0RF
mirtazapine 7.5 mg Tablet
7.5 mg PO HS 30 Days Qty: 30 0RF
pantoprazole [Protonix] 40 mg tablet,delayed release (DR/EC)
40 mg PO DAILY Qty: 30 0RF
Continued
atorvastatin 10 mg Tablet
10 mg PO HS
donepezil 5 mg tablet
5 mg PO HS
Discontinued
naproxen 500 mg tablet
500 mg PO BID
Discharge Orders:
Discharge Patient (As Directed); Ordered 04/02/24
Ordered By: Fernando Coyle
Discharge Date and Time
Print Language: MACANESE
[2024-04-02 12:35] VITALS: BP 125/70; PULSE 92; O2SAT 99
--- NOTE | 2024-04-02 16:08 | CM ---
Pt dc for today.
PT made recommendation today based on therapy session for SNF. SW spoke with daughter who declined SNF and said she will dc with [facility] as planned. Plan is for pt to spend the night at her daughters. Tomorrow daughter will re-evaluate and make
decisions moving forward.
Daughter says that there is PC at [facility], and SW encouraged her to consider if she is not improved after DC.
== END 2024-04-02 13:42 | disposition home health service (06) | DRG 871 ==
LOC: 3 WEST ACU 23:45
PROVIDERS: Clinical Nurse Specialist Family Health; Student in an Organized Health Care Education/Training Program; ADMITTING PHYSICIAN Hospitalist; ATTENDING PHYSICIAN Hospitalist; CONSULT PHYSICIAN Internal Medicine; EMERGENCY PHYSICIAN Emergency Medicine; FAMILY PHYSICIAN Family Medicine
DX: A41.9 Sepsis, unspecified organism (principal); J18.9 Pneumonia, unspecified organism; E87.0 Hyperosmolality and hypernatremia; F03.93 Unspecified dementia, unspecified severity, with mood disturbance; E44.0 Moderate protein-calorie malnutrition; K29.70 Gastritis, unspecified, without bleeding; F31.9 Bipolar disorder, unspecified; E87.6 Hypokalemia; G89.29 Other chronic pain; E11.9 Type 2 diabetes mellitus without complications; E78.00 Pure hypercholesterolemia, unspecified; Z68.25 Body mass index [BMI] 25.0-25.9, adult
CPT/HCPCS: 71046; 74177; 80048; 80053; 81003; 81015; 82962; 83036; 83690; 83735; 84100; 85025; 87086; 87811; 93005; 96361; 96374; 97116; 97162; 97166; 99285; Q9967

== ENCOUNTER 2024-04-15 14:38 | Emergency (ER) | payer OTHER, SELFPAY ==
[2024-04-15 14:44] VITALS: BP 103/75
[2024-04-15 14:59] VITALS: BMI 23.6
[2024-04-15 15:06] VITALS: BP 119/97
--- NOTE | 2024-04-15 15:41 | ED.GENMED ---
History of Present Illness
General
Chief Complaint: Weakness
Source: patient
Exam Limitations: none
Time Seen by Provider: 04/15/24 14:58
Nursing documentation reviewed up to this point in time: agreed with
History of Present Illness
History of Present Illness:
pt is a 78 y/o F with h/o dementia
poor appetite for about 1 mo
pt was hospitalized here after daughter who visits her daily was noticing that she wasn' eating/drinking normally and she was weaker. she was found to have LLL pna which was surprising to the daughter becuase she wasn't coughing or febrile
pt was treated with abx
she also was not eating while she was here and GI saw her ; she has previously had pancreatic dilation s/p EUS, erosive gastropatthy, chronic abdominal pain
thhey suspected she was having some abd pain secondary to chonstipation and thought it was chronic
recommended bowel regimen (senna) and they would see her as outpatient for colonoscopy and maybe endoscopy
pt has f/u in july which is not acceptable to daughter so the PCP is going to try to get her seen sooner
this past week pt was seen by er PCP for f/u; daughter again noting that she is not eating and not really drinking more than 8 oz of water daily
the pcp increased the mirtazapine which was started while admitted here for her appetite from 7.5 mg to 15 mg
she took the first dose las tnight
pt reports no pain
sh ehas no memory of not eating,, saying she eats what she wants.
Past History
Past History
ED Past Medical History: Hypercholesterolemia, NIDDM, Psychiatric (Bipolar ) and Other (Severe chronic back pain, Dementia, Hiatal hernia, IBS, Panreatitis, )
ED Past Surgical History: Gynecological (Hysterectomy), Orthopedic (Bilateral knee replacement, Bilateral hip replacement, Carpal tunnel, Laminectomy) and Other (Neuro stimulator implantation,)
Social History
Tobacco: Non-smoker
Alcohol: None
Personal:
Living: alone (Apartment in a [place] and over community)
Family History
Family History: Diabetes
Review of Systems
Review of Systems
Allergies reviewed?: Yes
Unable to obtain full review of systems at this time due to: dementia
All Other Systems: Not applicable
Phy Exam
Physical Exam
Physical Exam:
GENERAL: Alert , in no apparent distress
EYE: pupils equal and reactive
NECK: Supple
ENT: o/p clr, mmm.
CARDIAC: Regular rate and rhythm .
LUNGS: Clear breath sounds bilaterally, no acute respiratory distress, no wheezes/rales/rhonchi
ABDOMEN: Soft, without focal tenderness, no r/g, no cvat, normal bowel sounds
NEUROLOGICAL: Alert and oriented x 1, dementia, no focal neuro deficits, no focal deficits
SKIN: Warm and dry, skin intact.
MUSCULOSKELETAL: No edema, well perfused. neg nate's sign
PSYCH: Normal and appropriate interaction. Dementia
Course
Orders/Labs/Results
Orders:
Orders
04/15/24 15:07
Electrocardiogram (*1) Urgent
Reason for Study: Chest Pain
EKG- Treatment ONCE
04/15/24 15:36
CR Chest - 2 Views Urgent
Comment:
Reason For Exam: recent pneumonia
04/15/24 15:47
Complete Blood Count/With Diff Urgent
Comprehensive Metabolic Panel Urgent
Lipase Urgent
Magnesium Urgent
Troponin I Urgent
04/15/24 16:21
CT Chest With Iv Contrast Urgent
Comment:
Reason For Exam: not eating, LLL pna;
04/15/24 18:03
Urinalysis Reflex To Culture Urgent
04/15/24 19:25
Amoxicillin 500 mg/Clav 125 mg [Augmentin 500 mg/125 mg] 1 tablet PO NOW STA
Abnormal Lab Results
04/15/24
15:47
RBC 4.11 L 10^6/uL
(4.20-5.40)
MCHC 32.4 L g/dL
(33.0-37.0)
Absolute Lymphs (auto) 1.1 L 10^3/uL
(1.2-3.4)
Immature Gran % 0.8 H %
(0-0.5)
Monocytes % 9.6 H %
(1.7-9.3)
BUN 6 L mg/dl
(7-17)
Total Bilirubin 1.7 H mg/dl
(0.2-1.3)
04/15/24 15:47
04/15/24 15:47
Vital Signs
Initial and Last Documented VS:
Initial Vital Signs
Temp Pulse Resp Pulse Ox
36.8 C 90 16 97
04/15/24 14:41 04/15/24 14:41 04/15/24 14:41 04/15/24 14:41
Last Documented Vital Signs
Temp Pulse Resp BP Pulse Ox
36.8 C 80 21 116/85 97
04/15/24 14:41 04/15/24 18:30 04/15/24 18:30 04/15/24 18:28 04/15/24 18:30
MDM/Problems Addressed
Differential Diagnosis Includes:
dementia, malignancy, GERD, hiatal hernia
MDM/Problems Addressed:
78 y/o F with h/o dementia
has had dec po intake for the past month
daughter brought her in beg of this month for those symptoms and she was incidentally found to have LLL pna
pt was admitted
seen by GI for the poor eating while here
remeron intiiated
no endoscopy
thought she had some chronic constipation and recommended senna nad outpatient colnooscopy which she hasn't had
pt is still not eating, shhe lives alone but son and daughter take turns with her during the day and leave her at night by herself
she will barely drink liquids and eat any food for them
pcp increased the dose of the remeron to15 mg yesterday but daughter hasn't seen any change
pt has not had fever, cough, urinary symptoms, other than not urinating as much
she has no complaints here
she is a&ox 1 only
no focal findings
stable vitals
well appearing
doesn't appear dehydarted
no abdominal tendenress
w/u here unremarkable other than cxr indep reviewed by me to be similar LLL pna
? is this malignancy
pt had ct of her abd/pelvis last admission and they thought this looked infectious and her abdomen did not have any obvious vfindings;
1929 - ct shows still multifocal pna
pt has no fever, wbc or o2 requirement
already treated with zithromax and rocephin
d/w famiy and with dr. cunningham
will try another round abx augmentin this time
thoguht about resp FQ but it would interfere with her dmeentia medication
pt will be discharged
encourage po fulids, ensure etc
f/u with pcp
repeat cxr 3-4 weeks
return precautions
mesaage to GI director of front office to try to have expedited appt
f/u pulm
*Critical Care Note
Total Time (30-74mins, 75-104mins- exclusive of procedures): Not Applicable
ED Attending Note
-
Portions of this chart may have been created with voice recognition software.� Occasional wrong word or��sound alike� substitutions may have occurred due to the inherent limitations of voice recognition software.
Discharge Plan
Departure
Patient Disposition: Home (Routine Discharge)
Date of Disposition: 04/15/24
Time of Disposition: 19:25
Patient with high blood pressure during this ER visit?: No
Condition: Fair
Covid-19: Not Applicable
Discharge Problem:
Left lower lobe pneumonia, Failure to thrive, Dementia
Instructions: Pneumonia, Adult (DC)
Prescriptions:
New
amoxicillin-pot clavulanate [Augmentin] 500-125 mg tablet
1 tab PO BID Qty: 14 0RF
No Action
atorvastatin 10 mg Tablet
10 mg PO HS
donepezil 5 mg tablet
5 mg PO HS
polyethylene glycol 3350 [HealthyLax] 17 gram Powder In Packet
17 g PO DAILY Qty: 30 0RF
sennosides [Senna Laxative] 8.6 mg Tablet
17.2 mg PO HS 30 Days Qty: 60 0RF
mirtazapine 7.5 mg Tablet
7.5 mg PO HS 30 Days Qty: 30 0RF
pantoprazole [Protonix] 40 mg tablet,delayed release (DR/EC)
40 mg PO DAILY Qty: 30 0RF
Referrals:
Clark Rudd MD [Active] - Follow up in 5-7 days (pulmonary)
UNKNOWN - PT DOES,NOT KNOW [Family Provider] -
Activity Restrictions/Additional Instructions:
christian does still have a left lower pneumonia on her CAT scan. Does not look suspicious for a mass. She has normal blood work and no oxygen requirement and we are going to send her home with a different antibiotic. The original antibiotic Avelox I
was going to prescribe does interfere with her dementia medications so instead working to do Augmentin twice a day. Do this for 7 days. Please follow-up with the supervisor parking lot. She does not need a repeat x-ray in a couple of days but she does
need 1 in a couple of weeks. Have the family doctor order this. In the meantime I also reached out to the GI office to try to get her closer follow-up. It seems like maybe she may need an endoscopy. Continue all of her medications. Return for
worsening symptoms like severe fatigue, worsening confusion, fever or chills, shortness of breath, inability to walk, falls etc.
Interventions
Interventions:
*Risk Screen - Suicide Last Done: 04/15/24 14:41
*Neglect/Abuse Screening Last Done: 04/15/24 14:41
ED- Cardiac Assessment Last Done: 04/15/24 15:00
ED- Neurological Assessment Last Done: 04/15/24 15:00
ED- Pulmonary Assessment Last Done: 04/15/24 15:00
Discharge Date and Time
Print Language: NEPALESE
[2024-04-15 15:53] LABS: % Basophils 0.8 % (0-2); % Eosinophils 1.5 % (0-6); % Immature Granulocytes 0.8 % (0-0.5); % Lymphocytes 21.5 % (20.5-51.1); % Monocytes 9.6 % (1.7-9.3); % Neutrophils 65.8 % (42.2-75.2); Absolute Eosinophils 0.1 10^3/uL (0-0.7); Absolute Lymphocytes 1.1 10^3/uL (1.2-3.4); Absolute Monocytes 0.5 10^3/uL (0.1-0.6); Absolute Neutrophils 3.4 10^3/uL (1.4-6.5); Hematocrit 37.3 % (37.0-47.0); Hemoglobin 12.1 g/dL (12.0-16.0); Mean Corp Hgb Conc. 32.4 g/dL (33.0-37.0); Mean Corpuscular Hgb 29.4 pg (27.0-31.0); Mean Corpuscular Volume 90.8 fL (81.0-99.0); Mean Platelet Volume 8.6 fL (7.4-10.4); Nucleated Red Blood Cells % 0 %; Platelet Count 288 10^3/uL (130-400); Red Blood Cell Count 4.11 10^6/uL (4.20-5.40); Red Cell Dist. Width 14.1 % (11.5-14.5); White Blood Cell Count 5.2 10^3/uL (4.8-10.8)
[2024-04-15 16:00] VITALS: BP 121/78
[2024-04-15 16:11] LABS: ALT (SGPT) 12 U/L (0-35); AST (SGOT) 28 U/L (14-36); Albumin 3.7 g/dl (3.5-5.0); Alkaline Phosphatase 65 U/L (38-126); Blood Urea Nitrogen 6 mg/dl (7-17); Calcium 9.2 mg/dl (8.4-10.2); Carbon Dioxide 29 mmol/L (22-30); Chloride 104 mmol/L (98-107); Estimated Creatinine Clearance 52 ml/min; Glucose 88 mg/dl (70-99); Lipase 61 U/L (23-300); Magnesium 1.6 mg/dl (1.6-2.3); Potassium 3.5 mmol/L (3.5-5.1); Sodium 144 mmol/L (135-145); Total Bilirubin 1.7 mg/dl (0.2-1.3); Total Protein 6.5 g/dl (6.3-8.2); eGFR > 60.00
[2024-04-15 16:17] LABS: Troponin I < 0.012 ng/ml
[2024-04-15 18:28] VITALS: BP 116/85
[2024-04-15 19:00] VITALS: BP 129/68
[2024-04-15] MEDS: AUGMENTIN 500 MG/125 MG 1 TABLET PO (19:49)
== END 2024-04-15 20:21 | disposition home or self-care (01) ==
LOC: EMR 14:38
PROVIDERS: Physician Assistant; EMERGENCY PHYSICIAN Emergency Medicine
DX: J18.9 Pneumonia, unspecified organism (principal); R62.7 Adult failure to thrive; F03.93 Unspecified dementia, unspecified severity, with mood disturbance; F31.9 Bipolar disorder, unspecified; E78.00 Pure hypercholesterolemia, unspecified; E11.9 Type 2 diabetes mellitus without complications; K58.9 Irritable bowel syndrome, unspecified; Z83.3 Family history of diabetes mellitus; Z90.710 Acquired absence of both cervix and uterus; Z96.643 Presence of artificial hip joint, bilateral; Z96.653 Presence of artificial knee joint, bilateral
CPT/HCPCS: 99284; 71046; 71260; 80053; 83690; 83735; 84484; 85025; 93005; Q9967

== ENCOUNTER 2024-04-16 14:44 | Inpatient (IN) | payer OTHER, SELFPAY ==
[2024-04-16 12:28] VITALS: BP 126/66
--- NOTE | 2024-04-16 12:34 | ED.GENMED ---
History of Present Illness
General
Chief Complaint: Weakness
Source: family
Exam Limitations: none
Time Seen by Provider: 04/16/24 12:34
Nursing documentation reviewed up to this point in time: agreed with
History of Present Illness
History of Present Illness:
Patient is a 78-year-old female who presents back to the ER. Patient was seen here yesterday in the ER treated for pneumonia and sent home however daughter reports patient is not doing well. she is still not eating having diarrhea today more
confused than normal. She has had decreased appetite for over a month.Patient was actually admitted March 28 and discharge April 02 for pneumonia and at that time was given ceftriaxone and Zithromax. Daughter reports appetite has not come
back since then.
Patient was seen again yesterday as daughter reports she was still not eating and getting weaker and weaker. ct chest was done yesterday which did show persistent consolidation in the posterior left lower lobe and lingula which likely represent
ongoing multifocal pneumonia.
Daughter reports patient today is very confused and very weak and was not able to even stand and walk on her own.
Past History
Past History
ED Past Medical History: Hypercholesterolemia, NIDDM, Psychiatric (Bipolar ) and Other (Severe chronic back pain, Dementia, Hiatal hernia, IBS, Panreatitis, )
ED Past Surgical History: Gynecological (Hysterectomy), Orthopedic (Bilateral knee replacement, Bilateral hip replacement, Carpal tunnel, Laminectomy) and Other (Neuro stimulator implantation,)
Social History
Tobacco: Non-smoker
Alcohol: None
Personal:
Living: alone (Apartment in a [place] and over community)
Family History
Family History: Diabetes
Review of Systems
Review of Systems
Other source history: family
All Other Systems: ROS reviewed and negative except as documented in HPI and ROS
Constitutional: Reports fatigue
Respiratory: Reports no symptoms; Denies cough or trouble breathing
Cardiac: Reports no symptoms
ABD/GI: Reports anorexia
Skin: Reports no symptoms
Neurological: Reports other (increased confusion )
Phy Exam
General Physical Exam
General Presentation: no apparent distress
General age: appears stated age
General Skin: warm and dry
General Habitus: normal
General Mental: alert
General Hydration: dry mucous membranes
Cardiovascular Exam
Cardiovascular Exam: regular rate/rhythm and no murmur
Pulmonary Exam
Pulmonary Exam: lungs clear and no respiratory distress
Neurological Exam
Neurological Exam: alert and other (confused but follows commands )
Musculoskeletal Exam
Musculoskeletal Exam: full ROM
Skin Exam
Skin Exam: normal color and warm/dry
Psychiatric Exam
Psychiatric Exam: normal mood/affect
Course
Orders/Labs/Results
Orders:
Orders
04/16/24 13:04
Cardiac Monitoring- Treatment ONCE
IV Insert/Care/Rem.- Treatment PRN
Urinalysis Reflex To Culture Urgent
04/16/24 13:23
Complete Blood Count/With Diff Urgent
Comprehensive Metabolic Panel Urgent
Lactic Acid Urgent
04/16/24 14:11
CefTRIAXone [Rocephin] 1,000 mg IV NOW STA
04/16/24 14:12
Azithromycin 500 mg/250 ml [Zithromax Infusion] 500 mg in 250 ml IV NOW
Abnormal Lab Results
04/16/24
13:23
RBC 3.99 L 10^6/uL
(4.20-5.40)
Hgb 11.9 L g/dL
(12.0-16.0)
Hct 36.0 L %
(37.0-47.0)
Absolute Lymphs (auto) 1.1 L 10^3/uL
(1.2-3.4)
Lymphocytes % 17.3 L %
(20.5-51.1)
BUN 6 L mg/dl
(7-17)
Glucose 103 H mg/dl
(70-99)
04/16/24 13:23
04/16/24 13:23
Vital Signs
Initial and Last Documented VS:
Initial Vital Signs
Temp Pulse Resp BP Pulse Ox
98.3 F 86 16 126/66 98
04/16/24 12:28 04/16/24 12:28 04/16/24 12:28 04/16/24 12:28 04/16/24 12:28
Last Documented Vital Signs
Temp Pulse Resp BP Pulse Ox
98.3 F 86 16 126/66 98
04/16/24 12:28 04/16/24 12:28 04/16/24 12:28 04/16/24 12:28 04/16/24 12:28
MDM/Problems Addressed
Differential Diagnosis Includes:
not limited to: failure to thrive ; weakness dehydration electrolyte abnormality pneumonia
MDM/Problems Addressed:
Patient is a 78-year-old female who was brought back to the ER by daughter today. Patient was seen here yesterday diagnosed with pneumonia and daughter reports today patient is very weak unable to even stand on her own. In addition patient is
still not eating. She has not been eating and has had a decreased appetite since hospitalized in early March for pneumonia. Patient lives in independent living however since patient was hospitalized in March she has required a lot of
assistance by her children. I reviewed patient's CAT scan/ER visit from yesterday. CAT scan does show persistent consolidation with surrounding groundglass opacities in the posterior left lower lobe and lingula which represents ongoing multifocal
pneumonia.
patient patient was initially prescribed penicillin as there were no listed allergies in the chart however daughter reports patient is allergic to penicillin. Patient was previously given IV Rocephin Zithromax during previous hospitalization which
I ordered today. Labs unremarkable patient will require IV antibiotics hydration likely physical therapy and case management to eval for need for increased care / placement.
*Critical Care Note
Total Time (30-74mins, 75-104mins- exclusive of procedures): Not Applicable
Data Reviewed
Review of Other/Old Records Reveals: Labs, Radiology Studies, Discharge Summary and Other (previous ED visit )
ED Attending Note
-
Portions of this chart may have been created with voice recognition software.� Occasional wrong word or��sound alike� substitutions may have occurred due to the inherent limitations of voice recognition software.
Discharge Plan
Departure
Patient Disposition: Admit
Date of Disposition: 04/16/24
Time of Disposition: 14:17
Admit to: Med/Surg
Admit to doctor: hospitalist
Presentation/result/management discussed w/ accepting MD/DO: Hospitalist
Patient with high blood pressure during this ER visit?: No
Condition: Fair
Covid-19: Not Applicable
Discharge Problem:
Weakness, Multifocal pneumonia, Adult failure to thrive
Prescriptions:
No Action
atorvastatin 10 mg Tablet
10 mg PO HS
donepezil 5 mg tablet
5 mg PO HS
polyethylene glycol 3350 [HealthyLax] 17 gram Powder In Packet
17 g PO DAILY Qty: 30 0RF
sennosides [Senna Laxative] 8.6 mg Tablet
17.2 mg PO HS 30 Days Qty: 60 0RF
mirtazapine 7.5 mg Tablet
7.5 mg PO HS 30 Days Qty: 30 0RF
pantoprazole [Protonix] 40 mg tablet,delayed release (DR/EC)
40 mg PO DAILY Qty: 30 0RF
amoxicillin-pot clavulanate [Augmentin] 500-125 mg tablet
1 tab PO BID Qty: 14 0RF
Referrals:
Az Red MD [Family Provider] -
Interventions
Interventions:
*Risk Screen - Suicide Last Done: 04/16/24 12:28
*General Assessment Last Done: 04/16/24 12:28
*Neglect/Abuse Screening Last Done: 04/16/24 12:28
ED- Fall Risk Assessment Last Done: 04/16/24 12:55
*ED COVID-19 Vaccine History Last Done: 04/16/24 13:02
ED- Cardiac Assessment Last Done: 04/16/24 12:55
ED- Neurological Assessment Last Done: 04/16/24 12:55
ED- Pulmonary Assessment Last Done: 04/16/24 12:55
Discharge Date and Time
Print Language: ARABIC
[2024-04-16 12:53] VITALS: BMI 23.8
[2024-04-16 13:31] LABS: % Basophils 0.6 % (0-2); % Eosinophils 0.6 % (0-6); % Immature Granulocytes 0.5 % (0-0.5); % Lymphocytes 17.3 % (20.5-51.1); % Monocytes 7.3 % (1.7-9.3); % Neutrophils 73.7 % (42.2-75.2); Absolute Lymphocytes 1.1 10^3/uL (1.2-3.4); Absolute Monocytes 0.5 10^3/uL (0.1-0.6); Absolute Neutrophils 4.8 10^3/uL (1.4-6.5); Hemoglobin 11.9 g/dL (12.0-16.0); Mean Corp Hgb Conc. 33.1 g/dL (33.0-37.0); Mean Corpuscular Hgb 29.8 pg (27.0-31.0); Mean Corpuscular Volume 90.2 fL (81.0-99.0); Mean Platelet Volume 8.8 fL (7.4-10.4); Nucleated Red Blood Cells % 0 %; Platelet Count 298 10^3/uL (130-400); Red Blood Cell Count 3.99 10^6/uL (4.20-5.40); White Blood Cell Count 6.5 10^3/uL (4.8-10.8)
[2024-04-16 13:43] LABS: ALT (SGPT) 14 U/L (0-35); AST (SGOT) 28 U/L (14-36); Albumin 3.7 g/dl (3.5-5.0); Alkaline Phosphatase 74 U/L (38-126); Blood Urea Nitrogen 6 mg/dl (7-17); Calcium 9.1 mg/dl (8.4-10.2); Carbon Dioxide 29 mmol/L (22-30); Chloride 103 mmol/L (98-107); Estimated Creatinine Clearance 52 ml/min; Glucose 103 mg/dl (70-99); Potassium 3.5 mmol/L (3.5-5.1); Sodium 144 mmol/L (135-145); Total Bilirubin 1.3 mg/dl (0.2-1.3); Total Protein 6.4 g/dl (6.3-8.2); eGFR > 60.00
[2024-04-16 14:00] VITALS: BP 109/93
[2024-04-16] MEDS: ZITHROMAX INFUSION 250 IV (14:26)
[2024-04-16] MEDS: ROCEPHIN 1000 MG IV (14:27)
--- NOTE | 2024-04-16 14:37 | HPS.HSE ---
Family Physician
-
Family Physician: Az Red MD
Chief Complaint
-
increasing weakness not able to stand today,
History of Present Illness
HPI
78-year-old male past with hyperlipidemia bipolar disorder, ulcerative chronic back pain, status post neurostimulator implant status post removal, dementia, gastritis, pancreatic dilatation status post EUS, chronic history of constipation, -
Hospitalized from March 28 and discharge April 02 for pneumonias/p ceftriaxone and Zithromax now
seen at ER:
- Patient was seen at ER yesterday for PNA and sent home however daughter reports patient is not doing well.
- having diarrhea today more confused than normal
- decreased appetite for over a month
- getting weaker
- Daughter reports patient today is very confused and very weak and was not able to even stand and walk on her own.
CTC yesterday which did show persistent consolidation in the posterior left lower lobe and lingula which likely represent ongoing multifocal pneumonia.
Medical History
Past Medical History
Past Medical History: Reports Other
Additional Past Medical History:
HLD
DM2-diet controlled
bipolar disorder
severe chronic back pain
neurostimulator implant with removal
dementia short-term mild�moderate
nonbleeding erosions in gastric antrum 01/11/2020
hiatal hernia
IBS
pancreatitis
Past Surgical History: Reports Other
Additional Past Surgical History:
Neurostimulator implant lumbar with removal per son
Laminectomy
Bilateral hip replacement
Bilateral knee replacement
Hysterectomy
CTR
Appendectomy 03/01/2020
Social History
Tobacco: Non-smoker
Alcohol: None
Drug: None
Personal: Single
Living: Alone (In a condo)
Employment: Retired
Family History
Family History: Unable to Obtain
Allergies / Home Medications
Allergies reflects when Allergies were last updated in [employer].
Home Medications with original date entered in [employer]
Allergy/Medication List:
Allergies
Allergy/AdvReac Type Severity Reaction Status Date / Time
No Known Allergies Allergy Verified 03/28/24 17:32
Home Medications
atorvastatin 10 mg tablet 10 mg PO HS High Cholesterol 04/25/23
donepezil 5 mg tablet 5 mg PO HS 03/28/24
naproxen 500 mg tablet 500 mg PO BID 03/28/24
Review of Systems
-
Unable to obtain full review of systems at this time due to: Dementia
Constitutional: Reports See HPI
EENT: Reports No Symptoms
Respiratory: Reports No Symptoms
Cardiac: Reports No Symptoms
Abdomen/GI: Reports No Symptoms
: Reports No Symptoms
Musculoskeletal: Reports No Symptoms
Skin: Reports No Symptoms
Neurological: Reports See HPI and Weakness
Endocrine: Reports No Symptoms and Other (more confused )
Hematologic/Lymphatic: Reports No Symptoms
Psych: Reports No Symptoms
Physical Exam
Vital Signs
Vital Signs
Temp Pulse Resp BP Pulse Ox
98.3 F 86 16 126/66 98
04/16/24 12:28 04/16/24 12:28 04/16/24 12:28 04/16/24 12:28 04/16/24 12:28
Physical Exam
General: Comfortable, Conversant and Fever; No Chills
HEENT: NormoCephalic, Anicteric, Moist mucous membranes, PERRLA, [place] Conjunctivae and No Ptosis
Respiratory: Rales (With some rhonchi left lower lung base right CTA)
Cardiac: S1/S2 and Regular Rhythm; No Murmur, Rub, Gallop or Peripheral Edema
Breast: Deferred by me
GI: Soft, Non Distended, Normal Bowel Sounds, Tender (Entire upper abdomen) and No Hepatosplenomegaly
Rectal: Deferred by Provider
Genito-urinary: Deferred by me
Musculoskeletal: No Clubbing, No Cyanosis and No Edema
Skin: Warm and Dry; No Rash or Jaundice
Neuro: AO x 3 (Has dementia with short-term memory impairment remember some of past history thinks she still lives in a house versus a condo), Cranial Nerves Intact and No Sensory Deficits; No Slurred Speech, Facial Droop, Tremors or Sedated
Psych: Calm
Laboratory Results
-
04/16/24 13:23
04/16/24 13:23
Laboratory Results
Lactic Acid 1.0 mmol/L (0.7-2.0) 04/16/24 13:23
Total Bilirubin 1.3 mg/dl (0.2-1.3) 04/16/24 13:23
AST 28 U/L (14-36) 04/16/24 13:23
ALT 14 U/L (0-35) 04/16/24 13:23
Alkaline Phosphatase 74 U/L (38-126) 04/16/24 13:23
Data Reviewed
-
Diagnostic Radiology: Report Reviewed by me
CT Scan: Report Reviewed by me
Lab Data: Labs Reviewed by me
Old Records: Reviewed
Impression/Plan
-
Vital Signs
Temp Pulse Resp BP Pulse Ox
98.3 F 86 16 126/66 98
04/16/24 12:28 04/16/24 12:28 04/16/24 12:28 04/16/24 12:28 04/16/24 12:28
Laboratory Tests
04/15/24 04/16/24
15:47 13:23
WBC 5.2 6.5
Hgb 12.1 11.9 L
Creatinine 0.8
eGFR > 60.00
04/15/24 CXR
There is a persistent left lower lobe opacity, favored to represent persistent left lower lobe pneumonia.
CT Chest With Iv Contrast
There is a persistent consolidation with surrounding groundglass opacities in the posterior left lower lobe and lingula which likely represent ongoing multifocal pneumonia. Recommend continued treatment and follow-up to ensure resolution.
Last hospitalist admission:Date of Admission: 03/28/24 -Date of Discharge: 04/02/24
Discharge Diagnosis/Procedures:
Sepsis due to left lower lobe pneumonia
Hypernatremia
Abdomen pain
ASSESSMENT & PLAN
Ongoing multifocal PNA - Stable on room air and afebrile.
Recent Left lower lobe pneumonia as above
Associated with poor appetite and general debility
NEG MRSA screen on last admission
- Associated hypoactive infective encephalopathy
- associated acute gait dysfunction due to weakness
- agree with repeat IV CFTZ plus Azithro
- Incentive spirometry
- Consult PT/OT
Chronic history of constipation, pancreatic dilatation status post EUS x 2, gastropathy
- on PO PPI
- c/w OP bowel regimen
Dementia especially with short-term memory : oriented to name, son, daughter knows some of history
Moderate protein calorie malnutrition of chronic illness
- Lives alone in her own condo
- Continue Aricept 5 mg at bedtime at at bedtime
HLD
- Continue atorvastatin 10 mg at bedtime
DM2 former now diet controlled
HX Bipolar disorder
- No current meds
HX Severe chronic back pain
Has Neurostimulator implant with removal
- Tylenol as needed
Other PMH:
Hx hiatal hernia
Hx IBS
Hx pancreatitis
DVT Px: LMWH
Full code
IP MS
[2024-04-16 15:42] VITALS: BP 105/69; BMI 22.6
[2024-04-16] MEDS: LOVENOX 40 MG SC (17:06)
--- NOTE | 2024-04-16 20:24 | PTCARENOTE ---
Received patient in bed upon shift change. AAOx3. Pleasant and cooperative with care. No c/o pain or signs of distress. Bed alarm applied to patient bed proactively and patient educated on needing to use call garcia for assist out of bed. Call garcia
within reach.
[2024-04-16] MEDS: SENOKOT 17.2 MG PO (21:11)
[2024-04-16] MEDS: ARICEPT 5 MG PO (21:11)
[2024-04-16] MEDS: LIPITOR 10 MG PO (21:11)
[2024-04-16] MEDS: REMERON 15 MG PO (21:11)
[2024-04-16 23:29] VITALS: BP 122/65
[2024-04-17 07:55] VITALS: BP 104/59
--- NOTE | 2024-04-17 08:42 | VNURNOTE ---
Chart reviewed. Patient is current with [facility] nursing, PT, OT, [facility]. Will continue to follow hospital course and DC plans.
[2024-04-17 08:45] LABS: Blood Urea Nitrogen 5 mg/dl (7-17); Calcium 8.9 mg/dl (8.4-10.2); Carbon Dioxide 26 mmol/L (22-30); Chloride 104 mmol/L (98-107); Estimated Creatinine Clearance 52 ml/min; Glucose 82 mg/dl (70-99); Sodium 145 mmol/L (135-145); eGFR > 60.00
[2024-04-17 09:43] VITALS: BP 143/76
[2024-04-17 09:44] VITALS: BP 143/76; PULSE 75; O2SAT 99
[2024-04-17] MEDS: MIRALAX 17 GRAMS PO (10:05)
[2024-04-17] MEDS: PROTONIX 40 MG PO (10:06)
--- NOTE | 2024-04-17 10:34 | CM ---
Patient seen bedside.
IA completed with daughter Tia via phone.
Patient from independent living at [facility]
Daughter assists with shower and meds.
Per daughter, patient can feed herself but lately not wanting to eat.
patient ambulates with a cane prior to admission.
PT/OT recommending home care.
Patient current with [facility] and w3ill resume on d/c.
PCP: Dr Red
Pharmacy: [facility].
Plan: back to indpendent living at [facility], daughter Tia will transport.
[2024-04-17] MEDS: STERILE WATER FOR INJECTION 10 ML IV (13:26)
[2024-04-17] MEDS: ROCEPHIN 1000 MG IV (13:27)
[2024-04-17] MEDS: ZITHROMAX INFUSION 250 IV (13:27)
--- NOTE | 2024-04-17 15:36 | W.PN.HOSP.TC ---
Today's Communication/Plan
-
cw abx
cw PT/OT eval
Check procal
Assessment / Plan
Assessment / Plan
Weakness ? etiology ? Ongoing multifocal PNA - Stable on room air and afebrile.
Recent Left lower lobe pneumonia as above
Associated with poor appetite and general debility
NEG MRSA screen on last admission
- Associated hypoactive infective encephalopathy
- associated acute gait dysfunction due to weakness
- agree with repeat IV CFTZ plus Azithro ; check procal
- Would need repeat CT chest in 3-4 weeks to follow on the consolidation
- Incentive spirometry
- Consult PT/OT
Chronic history of constipation, pancreatic dilatation status post EUS x 2, gastropathy
- on PO PPI
- c/w OP bowel regimen
Dementia especially with short-term memory : oriented to name, son, daughter knows some of history
Moderate protein calorie malnutrition of chronic illness
- Lives alone in her own condo
- Continue Aricept 5 mg at bedtime at at bedtime
HLD
- Continue atorvastatin 10 mg at bedtime
DM2 former now diet controlled
HX Bipolar disorder
- No current meds
HX Severe chronic back pain
Has Neurostimulator implant with removal
- Tylenol as needed
Other PMH:
Hx hiatal hernia
Hx IBS
Hx pancreatitis
DVT Px: LMWH
Full code
IP MS
Anticipated Discharge: 24 - 48 hours
Subjective/Interval History
-
Date of Service: April 17, 2024
Pt alert and oriented.
Not sure why she is in hospital.
Voicing no complaints.
Brought in because of weakness.
Objective Data
-
Labs:
Laboratory Results
04/17/24
07:03
Sodium 145
Potassium 3.0 L
Chloride 104
Carbon Dioxide 26
BUN 5 L
Creatinine 0.8
Glucose 82
Calcium 8.9
Vital Signs:
Vital Signs
Temp Pulse Resp BP Pulse Ox
98.0 F 68 18 104/59 97
04/17/24 07:55 04/17/24 07:55 04/17/24 07:55 04/17/24 07:55 04/17/24 08:13
I&O
04/16/24 04/17/24 04/18/24
06:59 06:59 06:59
Intake Total 480 / 480
Balance 480 / 480
Review of Systems
-
Unable to obtain full review of systems at this time due to: Other (seems cognitively impaired)
Constitutional: Denies Fever
Respiratory: Denies Trouble Breathing
Cardiac: Denies Chest Pain
Abdomen/GI: Denies Abdominal Pain, Nausea, Vomiting or Diarrhea
Neuro: Denies Dizzy or Headache
Physical Exam
-
General: No Apparent Distress
Respiratory: Non Labored Respirations; Negative Accessory Resp Muscle Use
Cardiac: Regular Rhythm and S1/S2; Negative Tachycardic
GI: Soft, Nondistended, Normal Bowel Sounds and Tender (some discomfort in epigastric periumblical area ? but her CT A/P this month was neg for acute pathology ; Lipase normal)
Neuro: Awake, Alert and Oriented (self n person)
Psych: Calm and Confused; Negative Agitated
Data Reviewed
-
Labs: Labs Reviewed by me
[2024-04-17 15:47] VITALS: BP 114/72
[2024-04-17] MEDS: LOVENOX 40 MG SC (16:42)
[2024-04-17] MEDS: KCL 40 MEQ PO (16:43)
[2024-04-17 17:29] VITALS: BMI 22.6
[2024-04-17 17:35] LABS: Procalcitonin 0.08 ng/ml (0.0-0.25)
[2024-04-17] MEDS: ARICEPT 5 MG PO (21:34)
[2024-04-17] MEDS: LIPITOR 10 MG PO (21:34)
[2024-04-17] MEDS: SENOKOT 17.2 MG PO (21:34)
[2024-04-17] MEDS: REMERON 15 MG PO (21:34)
[2024-04-17 23:45] VITALS: BP 139/86
[2024-04-18 07:50] VITALS: BP 122/71
[2024-04-18] MEDS: MIRALAX 17 GRAMS PO (07:53)
[2024-04-18] MEDS: PROTONIX 40 MG PO (07:53)
[2024-04-18 08:30] LABS: Hematocrit 34.7 % (37.0-47.0); Hemoglobin 11.2 g/dL (12.0-16.0); Mean Corp Hgb Conc. 32.3 g/dL (33.0-37.0); Mean Corpuscular Hgb 29.5 pg (27.0-31.0); Mean Corpuscular Volume 91.3 fL (81.0-99.0); Mean Platelet Volume 8.9 fL (7.4-10.4); Platelet Count 253 10^3/uL (130-400); Red Cell Dist. Width 14.3 % (11.5-14.5); White Blood Cell Count 4.2 10^3/uL (4.8-10.8)
[2024-04-18 08:54] LABS: Blood Urea Nitrogen 3 mg/dl (7-17); Calcium 8.8 mg/dl (8.4-10.2); Carbon Dioxide 28 mmol/L (22-30); Chloride 105 mmol/L (98-107); Estimated Creatinine Clearance 52 ml/min; Glucose 75 mg/dl (70-99); Potassium 3.4 mmol/L (3.5-5.1); Sodium 145 mmol/L (135-145); eGFR > 60.00
--- NOTE | 2024-04-18 11:41 | VNURNOTE ---
Patient current w/ [facility]. patient w/short term memory loss. This author rec'ed message from supervisor porcelain department. Prior to this hospitalization, patient has been refusing PT, OT, nursing visits. She was also refusing full assessment by VN. Called daughter
Tia to discuss. No answer, left message requesting call back.
[2024-04-18] MEDS: ZITHROMAX INFUSION 250 IV (13:01)
[2024-04-18] MEDS: STERILE WATER FOR INJECTION 10 ML IV (13:01)
[2024-04-18] MEDS: ROCEPHIN 1000 MG IV (13:01)
--- NOTE | 2024-04-18 14:42 | PN.CDI ---
CDI
- -
CDI:
Physician Documentation Request
Admit Date: 04/16/24 14:44
Dear Doctor Jerry,
Patient admitted with ongoing multifocal pneumonia.
04/17 K 3.0
04/17 Patient received Potassium Chloride 40 meq po x 1 dose.
04/18 K 3.4
Based on the above, could you clarify in the progress notes, the appropriate diagnosis, if significant, that supports the above abnormalities and additional evaluation, monitoring and/or treatment rendered:
Hypokalemia
Insignificant abnormal lab finding
Other
Use of terms such as suspected, likely, concern for, or probable (associated with a specific diagnosis that is being evaluated, monitored, or treated as if it exists) are acceptable and can be coded in the inpatient setting, when documented at the
time of discharge.
Thank you,
Briseyda GARCIA,RN,CCDS
CDI Specialist
Available via [place] text
Please use your independent medical judgment in providing your response.
[2024-04-18 15:15] VITALS: BP 121/71
--- NOTE | 2024-04-18 15:32 | W.PN.HOSP.TC ---
Addendum entered and electronically signed by Marcus Edwards MD 04/18/24 15:49:
Hypokalemia -replete
Original Note:
Today's Communication/Plan
-
Consult GI
Assessment / Plan
Assessment / Plan
Weakness ? etiology ? Ongoing multifocal PNA vs other etiologies - .
Recent Left lower lobe pneumonia as above
Associated with poor appetite and general debility
NEG MRSA screen on last admission
- associated acute gait dysfunction due to weakness
- Stable on room air and afebrile. Procal is normal. Doubt active pneumonia .Hold on abx.
- Would need repeat CT chest in 3-4 weeks to follow on the consolidation
- Incentive spirometry
- Consult PT/OT
Chronic history of constipation, pancreatic dilatation status post EUS x 2, gastropathy
- LFTs and Lipase are normal
- on PO PPI
-on bowel regimen
With poor oral intake, wt loss , nonspecific abdominal discomfort and the recent CAT scan showing paucity of air in the colon I feel that she would benefit an inpatient colonoscopy. Consult GI.
Dementia especially with short-term memory : oriented to name, son, daughter knows some of history
Moderate protein calorie malnutrition of chronic illness
- Lives alone in her own condo
- Continue Aricept 5 mg at bedtime at at bedtime
HLD
- Continue atorvastatin 10 mg at bedtime
DM2 former now diet controlled
HX Bipolar disorder
- No current meds
HX Severe chronic back pain
Has Neurostimulator implant with removal
- Tylenol as needed
Other PMH:
Hx hiatal hernia
Hx IBS
Hx pancreatitis
DW daughter on phone and updated plan
Total time spent on today's encounter was 52 minutes which included time spent in counseling the patient/family regarding diagnosis and treatment plan as listed above, goals of care, and symptom management. Case was discussed with nursing staff,
specialists, and care coordinators/case management. All labs and imaging personally reviewed by me. Remainder the time spent in detailed review of previous records, lab data, imaging, and other medical provider documentation.
DVT Px: LMWH
Full code
IP MS
Anticipated Discharge: > 48 hours
Subjective/Interval History
-
Date of Service: April 18, 2024
Pt complaints of some discomfort in her epigastric area and some nausea.
Apparently has been loosing weight due to poor appetite.
Objective Data
-
Labs:
Laboratory Results
04/18/24
07:16
WBC 4.2 L
Hgb 11.2 L
Hct 34.7 L
Plt Count 253
Sodium 145
Potassium 3.4 L
Chloride 105
Carbon Dioxide 28
BUN 3 L
Creatinine 0.8
Glucose 75
Calcium 8.8
Vital Signs:
Vital Signs
Temp Pulse Resp BP Pulse Ox
98.3 F 70 18 122/71 99
04/18/24 07:50 04/18/24 07:50 04/18/24 07:50 04/18/24 07:50 04/18/24 07:50
I&O
04/17/24 04/18/24 04/19/24
06:59 06:59 06:59
Intake Total 480 / 480
Balance 480 / 480
Review of Systems
-
Constitutional: Denies Fever
EENT: Denies Sore Throat
Respiratory: Denies Trouble Breathing
Cardiac: Denies Chest Pain
Neuro: Denies Dizzy
Physical Exam
-
General: Comfortable
HEENT: Moist Mucous Membranes
Respiratory: Clear to Auscultation
Cardiac: Regular Rhythm and S1/S2
GI: Soft, Nondistended, Normal Bowel Sounds and Tender (some discomfort in epigastric area)
Neuro: AO x 3
Psych: Calm
Data Reviewed
-
Labs: Labs Reviewed by me
[2024-04-18] MEDS: KCL 40 MEQ PO (16:06)
--- NOTE | 2024-04-18 16:07 | CM ---
Patient seen bedside with daughter. Patient reports she does not want to talk to CM, asking CM to leave room. CM will continue to follow for all discharge planning needs. Per [facility] liaison, patient current with services, has been refusing visits
multiple times, VM left for patients daughter by liaison. Patient in [place] at [facility].
Plan; [facility] pending [facility] patient.
[2024-04-18] MEDS: LOVENOX 40 MG SC (17:00)
[2024-04-18] MEDS: SENOKOT 17.2 MG PO (21:21)
[2024-04-18] MEDS: ARICEPT 5 MG PO (21:22)
[2024-04-18] MEDS: LIPITOR 10 MG PO (21:22)
[2024-04-18] MEDS: REMERON 15 MG PO (21:22)
[2024-04-18 23:17] VITALS: BP 126/74
--- NOTE | 2024-04-19 04:05 | DOWNTIME ---
There was a [employer] Downtime on 04/19/2024 from 0100 to 04/19/2024 at 0350. Downtime documentation of patient's care, including medication administrations, has been reconciled in the electronic record per guidelines. Refer to the
patient's paper chart under the miscellaneous tab to see printed paper medication records and downtime forms.
[2024-04-19 07:00] VITALS: BP 140/84
[2024-04-19 07:51] LABS: Blood Urea Nitrogen < 2 mg/dl (7-17); Calcium 8.9 mg/dl (8.4-10.2); Carbon Dioxide 27 mmol/L (22-30); Chloride 102 mmol/L (98-107); Estimated Creatinine Clearance 70 ml/min; Glucose 73 mg/dl (70-99); Potassium 3.5 mmol/L (3.5-5.1); Sodium 144 mmol/L (135-145); eGFR > 60.00
[2024-04-19] MEDS: PROTONIX 40 MG PO (07:52)
[2024-04-19] MEDS: MIRALAX 17 GRAMS PO (07:52)
--- NOTE | 2024-04-19 10:16 | CON.GI ---
Addendum entered and electronically signed by Manas Travis MD 04/19/24 11:45:
I saw and evaluated the patient. I reviewed the resident�s note and agree with findings and plan as documented in the resident�s note.
78 year old female readmitted with failure to thrive, anorexia, weight loss. Has been treated for PNA which is felt to be stable at this time on room air. She does not eat much at all per daughter. History is limited by her dementia. Has some
discomfort epigastric after eating. EGD/colonoscopy in 2019 showed small colon adenomas. EGD was unremarkable. CT abd/pelvis recently done showed paucity of contrast reaching the colon. Radiologist qualified this as unable to rule out a mass.
May have been misconstrued by daughter and/or PCP as concerning for a mass and colonoscopy was felt to be urgently needed. Denies BM complaints currently,
REC:
Would set up EGD given her anorexia, weight loss, failure to thrive
SPoke with daughter and obtained consent
Colonoscopy may be considered eventually as part of the work up, but this is more of an outpt indication. CT did not show a mass, but instead could not EXCLUDE a mass
I tried calling PCP office as requested by daughter, but was on hold of long time
Add nutritional supplements
Original Note:
Consultation
-
Date/Time Consultation Requested: 04/18/2024,15:45
Date/Time Consultation Performed: 04/19/24,10:15
Requesting Provider: Marcus Edwards
Performing Provider: Manas Travis Sandal
Reason for Consultation: Colon mass
Medical History
Chief Complaint / HPI
Chief Complaint: Progressive weakness
History of Present Illness:
Patient is a 78 year old female with past medical history of diet controlled Diabetes Mellitus, Pancreatitis,Adenomatous polyps in colon removed in 2019,Nonbleeding erosions in gastric antrum 2019,hiatal hernia,chronnic
constipation,Hyperlipidemia,Dementia and Bipolar disorder who presented to emergency with complain of progressive weakness ,decreased appetite and failure to thrive.
She is being managed for Pneumonia in left lower lobe,was recently discharged on oral antibiotics but admitted back due to progressive decline in health.GI consulted for suspected colon mass/paucity in colon.Patient is a poor historian,knows her
name,her daughter and son but does not know the time or place.She denies any difficulty in swallowing,heartburn,dyspepsia,food sticking in throat,or appetite issues.She had not done her bkf and the tray was on side despite she saying that her
appetite is good.She denies any black or red stools,pain,fever,nausea or vomiting.She does communicate recent weight loss but not sure how much did she loose.
I spoke to the daughter over phone to obtain further history,She said her mother lost 30 pounds over 6 weeks.She denied any blood in vomitus or stool.She said that her mother can take care of herself in general but has not been able to do so over
the last few weeks.Her mother's PCP wanted to get her colonoscopy at the earliest.She also expressed concern over the mass found in her colon.
Past Medical History
Past Medical History: Hypercholesterolemia and Other (iet controlled Diabetes Mellitus, Pancreatitis,Adenomatous polyps in colon removed in 2019,Nonbleeding erosions in gastric antrum 2019,hiatal hernia,chronnic constipation,Hyperlipidemia,Dementia
and Bipolar disorder )
Past Surgical History: Appendectomy, Gynecological (Hysterectomy) and Orthopedic (Neurostimulator implant lumbar with removal per son Laminectomy Bilateral hip replacement Bilateral knee replacement)
Social History
Tobacco: Non-Smoker
Alcohol: Occasional
Drug: None
Personal: Single
Living: Alone (in a condo)
Family History
Family History: Unable to Obtain
Allergies / Home Medications
Allergy/AdvReac Type Severity Reaction Status Date / Time
Penicillins Allergy Unknown Verified 04/16/24 12:27
�Medication �Instructions �Recorded
atorvastatin 10 mg tablet 10 mg PO HS High Cholesterol 04/25/23
donepezil 5 mg tablet 5 mg PO HS dementia 03/28/24
polyethylene glycol 3350 17 gram 17 g PO DAILY #30 ea 04/01/24
oral powder packet (HealthyLax)
sennosides 8.6 mg tablet (Senna 17.2 mg (2 x 8.6 mg) PO HS 30 days 04/01/24
Laxative) #60 tabs
pantoprazole 40 mg tablet,delayed 40 mg PO DAILY #30 tabs 04/02/24
release (Protonix)
mirtazapine 15 mg tablet 15 mg PO HS Mental Health/Anxiety 04/16/24
Review of Systems
-
All other systems: A 12 pt ROS was Negative except as stated above in HPI
Vital Signs
Temp Pulse Resp BP Pulse Ox
98.6 F 74 18 126/74 100
04/18/24 23:17 04/18/24 23:17 04/18/24 23:17 04/18/24 23:17 04/18/24 23:17
Physical Exam
Exam
General: Comfortable, Poor Appetite and Other (Weak,lying in bed,oriented to name only)
HEENT: Anicteric and Moist Mucous Membranes
Respiratory: Other (No wheezes,ronchi or rales)
Cardiac: S1/S2, Regular Rhythm and Other (no murmur)
GI: Soft, Non Tender and Normal Bowel Sounds
Genito-urinary: No Costovertebral Tender
Musculoskeletal: No Clubbing and No Edema
Skin: Warm
Neuro: Alert, Oriented (to name only) and No Motor Deficits
Hematologic/Lymphatic: No Lymphadenopathy
Psych: Calm and Confused
Results
WBC 4.2 10^3/uL (4.8-10.8) L 04/18/24 07:16
Hgb 11.2 g/dL (12.0-16.0) L 04/18/24 07:16
Hct 34.7 % (37.0-47.0) L 04/18/24 07:16
MCV 91.3 fL (81.0-99.0) 04/18/24 07:16
Plt Count 253 10^3/uL (130-400) 04/18/24 07:16
Absolute Neuts (auto) 4.8 10^3/uL (1.4-6.5) 04/16/24 13:23
Sodium 144 mmol/L (135-145) 04/19/24 06:04
Potassium 3.5 mmol/L (3.5-5.1) 04/19/24 06:04
Chloride 102 mmol/L (98-107) 04/19/24 06:04
Carbon Dioxide 27 mmol/L (22-30) 04/19/24 06:04
BUN < 2 mg/dl (7-17) L 04/19/24 06:04
Creatinine 0.6 mg/dL (0.6-1.0) 04/19/24 06:04
Calcium 8.9 mg/dl (8.4-10.2) 04/19/24 06:04
Total Bilirubin 1.3 mg/dl (0.2-1.3) 04/16/24 13:23
AST 28 U/L (14-36) 04/16/24 13:23
ALT 14 U/L (0-35) 04/16/24 13:23
Alkaline Phosphatase 74 U/L (38-126) 04/16/24 13:23
Diagnostic Image Results:
Prior GI Procedures:
EGD: 2019
Impression: - Z-line irregular. Biopsied.
- Non-bleeding erosive gastropathy. Biopsied.
- Normal examined duodenum. Biopsied.
- Medium-sized hiatal hernia.
Colonoscopy: 2019
Findings:
The perianal and digital rectal examinations were normal.
Normal mucosa was found in the cecum. Biopsies were taken with a cold
forceps for histology.
A 3 mm polyp was found in the ascending colon. The polyp was sessile.
The polyp was removed with a jumbo cold forceps. Resection and retrieval
were complete.
A 5 mm polyp was found in the transverse colon. The polyp was sessile.
The polyp was removed with a cold snare. Resection and retrieval were
complete.
A 8 mm polyp was found in the descending colon. The polyp was
pedunculated. The polyp was removed with a hot snare. Resection and
retrieval were complete.
Non-bleeding internal hemorrhoids were found during retroflexion. The
hemorrhoids were small.
Assessment / Plan
-
IMPRESSION
Patient is a 78 year old female with past medical history of diet controlled Diabetes Mellitus, Pancreatitis,Adenomatous polyps in colon removed in 2019,Nonbleeding erosions in gastric antrum 2019,hiatal hernia,chronnic
constipation,Hyperlipidemia,Dementia and Bipolar disorder who presented to emergency with complain of progressive weakness ,decreased appetite and failure to thrive.
GI consulted for paucity in colon and recent 30 Ibs weight loss over 6 months.
ASSESSMENT/PLAN
Recent weight loss-30 pounds over 6 weeks
Weakness and failure to thrive
Past history of removal of adenomatous polyps in 2020
Anemia
Colonoscopy to assess the colon paucity/mass
Can be done on outpatient basis once patient's acute issues resolve
-
-
Thank you for consultation and allowing me to participate in the patient's care. Please call the [facility] GI physician during the after hours with any questions or concerns.
--- NOTE | 2024-04-19 10:31 | VNURNOTE ---
[facility] liaison spoke with patient's daughter Tia. She confirmed she would like to continue services. Discussed that per VN charting, patient had refused full assessments by multiple disciplines and refused visits. Reviewed w/daughter that VN needs to
be able to schedule visits and perform assessments. Daughter verbalized understanding. She requested to schedule all visits through her and she thinks it would be best for her to be w/patient during assessments due to pt's memory impairment. This
author agreed. Updated resumption referral.
[2024-04-19 11:31] VITALS: BP 130/79; PULSE 71; O2SAT 96
--- NOTE | 2024-04-19 13:28 | W.PN.HOSP.TC ---
Today's Communication/Plan
-
GI consult
CW to encourage oral intake
Hold on further abx
CW PT/OT
Assessment / Plan
Assessment / Plan
Weakness ? etiology ? Ongoing multifocal PNA vs other etiologies - .
Recent Left lower lobe pneumonia as above
Associated with poor appetite and general debility
NEG MRSA screen on last admission
- associated acute gait dysfunction due to weakness
- Stable on room air and afebrile. Procal is normal. Doubt active pneumonia .Hold on abx.
- Would need repeat CT chest in 3-4 weeks to follow on the consolidation.If no improvement to consider further diagnostic eval.
- Incentive spirometry
-cw PT/OT
Chronic history of constipation, pancreatic dilatation status post EUS x 2, gastropathy
- LFTs and Lipase are normal
- on PO PPI
-on bowel regimen
With poor oral intake, wt loss , nonspecific abdominal discomfort and the recent CAT scan showing paucity of air in the colon I feel that she would benefit an inpatient colonoscopy. Consulted GI.
Pt is medically stable for endoscopic evals .
Dementia especially with short-term memory : oriented to name, son, daughter knows some of history
Moderate protein calorie malnutrition of chronic illness
- Lives alone in her own condo
- Continue Aricept 5 mg at bedtime at at bedtime
HLD
- Continue atorvastatin 10 mg at bedtime
DM2 former now diet controlled
HX Bipolar disorder
- No current meds
HX Severe chronic back pain
Has Neurostimulator implant with removal
- Tylenol as needed
Other PMH:
Hx hiatal hernia
Hx IBS
Hx pancreatitis
DW daughter on phone and updated plan 04/18
DVT Px: LMWH
Full code
IP MS
Anticipated Discharge: > 48 hours
Subjective/Interval History
-
Date of Service: April 19, 2024
Patient still with poor oral intake. Voices no specific complaints. Denying abdominal pain. Denies nausea to me today.
Objective Data
-
Labs:
Laboratory Results
04/19/24
06:04
Sodium 144
Potassium 3.5
Chloride 102
Carbon Dioxide 27
BUN < 2 L
Creatinine 0.6
Glucose 73
Calcium 8.9
Vital Signs:
Vital Signs
Temp Pulse Resp BP Pulse Ox
98.2 F 78 18 140/84 100
04/19/24 07:00 04/19/24 07:00 04/19/24 07:00 04/19/24 07:00 04/19/24 07:00
I&O
04/18/24 04/19/24 04/20/24
06:59 06:59 06:59
Intake Total 330 / 330
Balance 330 / 330
Review of Systems
-
Unable to obtain full review of systems at this time due to: Dementia
Respiratory: Denies Trouble Breathing
Cardiac: Denies Chest Pain
Neuro: Denies Dizzy
Physical Exam
-
General: No Apparent Distress
HEENT: Moist Mucous Membranes
Respiratory: Clear to Auscultation
Cardiac: Regular Rhythm and S1/S2
GI: Soft and Nontender (today)
Neuro: Awake, Alert and Oriented (self and person)
Psych: Calm and Confused
Data Reviewed
-
Labs: Labs Reviewed by me
[2024-04-19] MEDS: STERILE WATER FOR INJECTION IV (14:38)
[2024-04-19 15:00] VITALS: BP 123/76
[2024-04-19] MEDS: LOVENOX 40 MG SC (17:12)
[2024-04-19] MEDS: REMERON 15 MG PO (21:48)
[2024-04-19] MEDS: LIPITOR 10 MG PO (21:48)
[2024-04-19] MEDS: ARICEPT 5 MG PO (21:49)
[2024-04-19] MEDS: SENOKOT 17.2 MG PO (21:49)
[2024-04-19 23:20] VITALS: BP 130/85
[2024-04-20 07:00] VITALS: BP 102/64
[2024-04-20] MEDS: MIRALAX 17 GRAMS PO (07:40)
[2024-04-20] MEDS: PROTONIX 40 MG PO (07:40)
--- NOTE | 2024-04-20 08:51 | W.PN.HOSP.TC ---
Today's Communication/Plan
-
EGD for tomorrow as per GI
Assessment / Plan
Assessment / Plan
Physical Exam
General: No Apparent Distress
HEENT: Moist Mucous Membranes
Respiratory: Clear to Auscultation
Cardiac: Regular Rhythm and S1/S2
GI: Soft and Nontender (today)
Neuro: Awake, Alert and Oriented (self and person)
Psych: Calm and Confused
Assessment/Plan
Presentation with failure to thrive, poor oral intake and significant weight loss
Weakness ? etiology ? Ongoing multifocal PNA vs other etiologies - .
Recent Left lower lobe pneumonia as above
Associated with poor appetite and general debility
NEG MRSA screen on last admission
- associated acute gait dysfunction due to weakness
- Stable on room air and afebrile. Procal is normal. Doubt active pneumonia .Hold on abx.
- Would need repeat CT chest in 3-4 weeks to follow on the consolidation.If no improvement to consider further diagnostic eval.
- Incentive spirometry
-cw PT/OT
Chronic history of constipation, pancreatic dilatation status post EUS x 2, gastropathy
- LFTs and Lipase are normal
- on PO PPI
-on bowel regimen
With poor oral intake, wt loss , nonspecific abdominal discomfort and the recent CAT scan showing paucity of air in the colon I feel that she would benefit an inpatient colonoscopy. Consulted GI.
Pt is medically stable for endoscopic evals -- GI has been talking with patient's family, and EGD is planned for tomorrow
Dementia especially with short-term memory : oriented to name, son, daughter knows some of history
Moderate protein calorie malnutrition of chronic illness
- Lives alone in her own condo
- Continue Aricept 5 mg at bedtime at at bedtime
HLD
- Continue atorvastatin 10 mg at bedtime
DM2 former now diet controlled
HX Bipolar disorder
- No current meds
HX Severe chronic back pain
Has Neurostimulator implant with removal
- Tylenol as needed
Other past medical history:
History of hiatal hernia
History of IBS
History of pancreatitis
DVT Prophylaxis: LMWH
Code Status: Full Code
Anticipated Discharge: 24 - 48 hours
Subjective/Interval History
-
Date of Service: April 20, 2024
Patient was seen and examined. She denied any complaints or symptoms.
Objective Data
-
Vital Signs:
Vital Signs
Temp Pulse Resp BP Pulse Ox
98.5 F 74 18 102/64 95
04/20/24 07:00 04/20/24 07:00 04/20/24 07:00 04/20/24 07:00 04/20/24 07:00
I&O
04/19/24 04/20/24 04/21/24
06:59 06:59 06:59
Intake Total 330 / 330 1080 / 1080
Balance 330 / 330 1080 / 1080
[2024-04-20] MEDS: KCL 40 MEQ PO (09:02)
--- NOTE | 2024-04-20 11:56 | PTCARENOTE ---
spoke to patient's daughter, Vianey, to notify her that patient will not have EGD done today. procedure will be done tomorrow.
[2024-04-20] MEDS: STERILE WATER FOR INJECTION IV (13:13)
[2024-04-20 15:00] VITALS: BP 123/65
[2024-04-20] MEDS: LOVENOX 40 MG SC (17:19)
--- NOTE | 2024-04-20 17:32 | W.PN.GI.CBS2 ---
Today's Communication / Plan
-
egd tmwr
Assessment / Plan
-
IMPRESSION
Patient is a 78 year old female with past medical history of diet controlled Diabetes Mellitus, Pancreatitis, adenomatous polyps in colon removed in 2019, nonbleeding erosions in gastric antrum 2019, hiatal hernia, chronic constipation,
hyperlipidemia, dementia and bipolar disorder who presented to emergency with complain of progressive weakness, decreased appetite, failure to thrive, abdominal pain. Second hospitalization for this seen earlier in Mar by Dr. Thompson.
ASSESSMENT/PLAN
Plan EGD tomorrow Dr. Travis obtained consent from daughter Vianey yesterday
I d/w Tia today re: if EGD negative questionable cscope. I explained this can be done outpatient but she thinks pt will not be able to do prep outpatient and will not drink liquid inpatient. Other option is to put a NGT in and do a bowel prep for
Wednesday in the hospital. I did d/w her what she would do if she did have a colon mass would she wants surgery and she states she is not sure. I offered if opted outpatient route to expedite appt with Dr. Thompson next week (currently scheduled in
July).
I did d/w possibility dementia could be progressing which could explain FTT but outpatient PCP felt less likely and she is having abd pain.
Subjective
Subjective
Date of Service: April 20, 2024
limited history from patient no abd pain per her report
Objective
Data Reviewed
Laboratory Data:
Laboratory Results
04/18/24 07:16
04/19/24 06:04
Laboratory Results
Total Bilirubin 1.3 mg/dl (0.2-1.3) 04/16/24 13:23
AST 28 U/L (14-36) 04/16/24 13:23
ALT 14 U/L (0-35) 04/16/24 13:23
Alkaline Phosphatase 74 U/L (38-126) 04/16/24 13:23
Vital Signs and I&O:
Vital Signs
Temp Pulse Resp BP Pulse Ox
98.5 F 74 18 102/64 95
04/20/24 07:00 04/20/24 07:00 04/20/24 07:00 04/20/24 07:00 04/20/24 07:00
I&O
04/19/24 04/20/24 04/21/24
06:59 06:59 06:59
Intake Total 330 / 330 1080 / 1080
Balance 330 / 330 1080 / 1080
Physical Exam
Physical Exam
HEENT: Anicteric
Cardiology: Normal Sinus Rhythm
Pulmonary: Clear
GI: Non Distended and Non Tender
[2024-04-20] MEDS: ARICEPT 5 MG PO (22:13)
[2024-04-20] MEDS: REMERON 15 MG PO (22:13)
[2024-04-20] MEDS: LIPITOR 10 MG PO (22:13)
[2024-04-20] MEDS: SENOKOT 17.2 MG PO (22:13)
[2024-04-20 23:17] VITALS: BP 143/79
[2024-04-21] VITALS (9 sets, daily range): BP systolic 15–150; BP diastolic 63–93; PULSE 80; O2SAT 97
[2024-04-21] MEDS: MIRALAX 17 GRAMS PO (07:33)
[2024-04-21] MEDS: PROTONIX 40 MG PO ×2 (07:34→19:34)
[2024-04-21 11:09] LABS: Hematocrit 35.9 % (37.0-47.0); Hemoglobin 12.4 g/dL (12.0-16.0); Mean Corp Hgb Conc. 34.5 g/dL (33.0-37.0); Mean Corpuscular Hgb 29.4 pg (27.0-31.0); Mean Corpuscular Volume 85.1 fL (81.0-99.0); Mean Platelet Volume 10.4 fL (7.4-10.4); Platelet Count 184 10^3/uL (130-400); Red Blood Cell Count 4.22 10^6/uL (4.20-5.40); Red Cell Dist. Width 14.2 % (11.5-14.5); White Blood Cell Count 5.2 10^3/uL (4.8-10.8)
--- NOTE | 2024-04-21 11:14 | W.PN.HOSP.TC ---
Today's Communication/Plan
-
EGD completed with gastritis
Increase Protonix to 40 mg PO BID
PT/OT
Discharge planning
Assessment / Plan
Assessment / Plan
Physical Exam
General: No Apparent Distress
HEENT: Moist Mucous Membranes
Respiratory: Clear to Auscultation Bilaterally
Cardiac: Regular Rhythm and S1/S2
GI: Soft and Nontender. Positive bowel sounds.
Neuro: Awake, Alert and Oriented (self and person)
Psych: Calm and Confused
Assessment/Plan
Presentation with failure to thrive, poor oral intake and significant weight loss
Epigastric Pain
Recent Left lower lobe pneumonia
Associated with poor appetite and general debility
Mucosal nodule found in the esophagus on EGD (as per table filler)
2 cm hiatal hernia on EGD (as per table filler)
Widely patent, non-obstructing and mild Schatzki ring on EGD (as per table filler)
Erythematous mucosa in the antrum on EGD (as per table filler)
Gastric erosions with no bleeding and no stigmata of recent bleeding on EGD (as per table filler)
-Associated acute gait dysfunction due to weakness
-Stable on room air and afebrile. Procal is normal. Doubt active pneumonia .Hold on abx.
-Would need repeat CT chest in 3-4 weeks to follow on the consolidation.If no improvement to consider further diagnostic eval.
-Incentive spirometry
-Continue with PT/OT
-Per gastroenterology, okay to discharge patient -- egd with significant gastritis increase Protonix to 40 mg BID as outpatient
-Okay to continue usual diet
-Follow-up on biopsy results of EGD
-Follow-up with gastroenterology outpatient by next week: follow up outpatient next week 04/25/24 at 3:[address] Thompson
-Can consider increasing Remeron outpatient
Chronic history of constipation, pancreatic dilatation status post EUS x 2, gastropathy
- LFTs and Lipase are normal
- on PO PPI
-on bowel regimen
Dementia especially with short-term memory : oriented to name, son, daughter knows some of history
Moderate protein calorie malnutrition of chronic illness
- Lives alone in her own condo
- Continue Aricept 5 mg at bedtime at at bedtime
Hyperlipidemia
- Continue Atorvastatin 10 mg at bedtime
DM2 former now diet controlled
History of Bipolar disorder
- No current meds
History of Severe chronic back pain
Has Neurostimulator implant with removal
- Tylenol as needed
Other past medical history:
History of hiatal hernia
History of IBS
History of pancreatitis
DVT Prophylaxis: LMWH
Code Status: Full Code
Anticipated Discharge: Within 24 hours
Subjective/Interval History
-
Date of Service: April 21, 2024
Patient was seen and examined. She reported some epigastric discomfort but otherwise denied chest pain, shortness of breath or any other symptoms or complaints.
Objective Data
-
Labs:
Laboratory Results
04/21/24
10:12
WBC 5.2
Hgb 12.4
Hct 35.9 L
Plt Count 184 D
Sodium Pending
Potassium Pending
Chloride Pending
Carbon Dioxide Pending
BUN Pending
Creatinine Pending
Glucose Pending
Calcium Pending
Vital Signs:
Vital Signs
Temp Pulse Resp BP Pulse Ox
98.8 F 72 15 150/93 98
04/21/24 07:00 04/21/24 09:37 04/21/24 09:37 04/21/24 09:37 04/21/24 09:37
I&O
04/20/24 04/21/24 04/22/24
06:59 06:59 06:59
Intake Total 1080 / 1080 120 / 120
Balance 1080 / 1080 120 / 120
[2024-04-21 11:23] LABS: Blood Urea Nitrogen 7 mg/dl (7-17); Calcium 9.5 mg/dl (8.4-10.2); Carbon Dioxide 24 mmol/L (22-30); Chloride 104 mmol/L (98-107); Estimated Creatinine Clearance 46 ml/min; Glucose 86 mg/dl (70-99); Magnesium 1.6 mg/dl (1.6-2.3); Potassium 3.8 mmol/L (3.5-5.1); Sodium 143 mmol/L (135-145); eGFR > 60.00
[2024-04-21] MEDS: MAGNESIUM SULFATE 102 GRAMS IV (13:42)
--- NOTE | 2024-04-21 14:01 | PTCARENOTE ---
patient needs much encouragement for po intake, only agreeable to sips of water and applejuice. Able to make her needs known . Denies pain. Call garcia in reach resting at present.
--- NOTE | 2024-04-21 15:04 | CM ---
CM reviewed chart, received update from PT, recommending SNF for patient. CM placed call to patients daughter, Tia, left VM requesting return call. CM will continue to follow for all discharge planning needs.
Plan; from Nico SEBASTIAN with [facility], PT recommending SNF, awaiting return call to discuss with patients daughter.
[2024-04-21] MEDS: LOVENOX 40 MG SC (16:50)
--- NOTE | 2024-04-21 17:41 | W.PN.UPDATE ---
Update Note
Progress Note Update
GI signing off please see EGD note for recommendations
Pls call with ?s or changes in pt clinical status
[2024-04-21] MEDS: LIPITOR 10 MG PO (20:51)
[2024-04-21] MEDS: REMERON 15 MG PO (20:51)
[2024-04-21] MEDS: ARICEPT 5 MG PO (20:51)
[2024-04-21] MEDS: SENOKOT 17.2 MG PO (20:51)
[2024-04-22 07:35] VITALS: BP 110/59
[2024-04-22] MEDS: MIRALAX PO ×2 (10:30→10:47)
[2024-04-22] MEDS: PROTONIX PO ×2 (10:32→10:47)
[2024-04-22 15:30] VITALS: BP 127/69
--- NOTE | 2024-04-22 18:31 | W.PN.HOSP.TC ---
Today's Communication/Plan
-
Stable
Placement pending
Assessment / Plan
Assessment / Plan
Physical Exam
General: No Apparent Distress
HEENT: Moist Mucous Membranes
Respiratory: Clear to Auscultation Bilaterally
Cardiac: Regular Rhythm and S1/S2
GI: Soft and Nontender. Positive bowel sounds.
Neuro: Awake, Alert and Oriented (self and person)
Psych: Calm and Confused
Assessment/Plan
Presentation with failure to thrive, poor oral intake and significant weight loss
Epigastric Pain
Recent Left lower lobe pneumonia
Associated with poor appetite and general debility
Mucosal nodule found in the esophagus on EGD (as per glass technologist)
2 cm hiatal hernia on EGD (as per glass technologist)
Widely patent, non-obstructing and mild Schatzki ring on EGD (as per glass technologist)
Erythematous mucosa in the antrum on EGD (as per glass technologist)
Gastric erosions with no bleeding and no stigmata of recent bleeding on EGD (as per glass technologist)
-Associated acute gait dysfunction due to weakness
-Stable on room air and afebrile. Procal is normal. Doubt active pneumonia .Hold on abx.
-Would need repeat CT chest in 3-4 weeks to follow on the consolidation.If no improvement to consider further diagnostic eval.
-Incentive spirometry
-Continue with PT/OT
-Per gastroenterology, okay to discharge patient -- egd with significant gastritis increase Protonix to 40 mg BID as outpatient
-Okay to continue usual diet
-Follow-up on biopsy results of EGD
-Follow-up with gastroenterology outpatient by next week: follow up outpatient next week 04/25/24 at 3:[address] Thompson
-Can consider increasing Remeron outpatient
Chronic history of constipation, pancreatic dilatation status post EUS x 2, gastropathy
- LFTs and Lipase are normal
- on PO PPI
-on bowel regimen
Dementia especially with short-term memory : oriented to name, son, daughter knows some of history
Moderate protein calorie malnutrition of chronic illness
- Lives alone in her own condo
- Continue Aricept 5 mg at bedtime at at bedtime
Hyperlipidemia
- Continue Atorvastatin 10 mg at bedtime
DM2 former now diet controlled
History of Bipolar disorder
- No current meds
History of Severe chronic back pain
Has Neurostimulator implant with removal
- Tylenol as needed
Other past medical history:
History of hiatal hernia
History of IBS
History of pancreatitis
DVT Prophylaxis: LMWH
Code Status: Full Code
Anticipated Discharge: 24 - 48 hours
Subjective/Interval History
-
Date of Service: April 22, 2024
Patient was seen and examined. She denied any new complaints, still with some epigastric pain per her.
Objective Data
-
Vital Signs:
Vital Signs
Temp Pulse Resp BP Pulse Ox
98.8 F 74 18 127/69 96
04/22/24 15:30 04/22/24 15:30 04/22/24 15:30 04/22/24 15:30 04/22/24 15:30
I&O
04/21/24 04/22/24 04/23/24
06:59 06:59 06:59
Intake Total 120 / 120 100 / 100
Balance 120 / 120 100 / 100
[2024-04-22] MEDS: LOVENOX 40 MG SC (18:33)
[2024-04-22] MEDS: PROTONIX 40 MG PO (20:10)
[2024-04-22] MEDS: SENOKOT PO ×2 (21:11→21:15)
[2024-04-22] MEDS: LIPITOR 10 MG PO (21:12)
[2024-04-22] MEDS: REMERON 15 MG PO (21:12)
[2024-04-22] MEDS: ARICEPT 5 MG PO (21:12)
[2024-04-22 23:00] VITALS: BP 118/63
--- NOTE | 2024-04-23 07:38 | W.PN.HOSP.TC ---
Today's Communication/Plan
-
Discharge today
Assessment / Plan
Assessment / Plan
Physical Exam
General: No Apparent Distress
HEENT: Moist Mucous Membranes
Respiratory: Clear to Auscultation Bilaterally
Cardiac: Regular Rhythm and S1/S2
GI: Soft and Nontender. Positive bowel sounds.
Neuro: Awake, Alert and Oriented (self and person)
Psych: Calm and Confused
Assessment/Plan
Presentation with failure to thrive, poor oral intake and significant weight loss
Epigastric Pain
Recent Left lower lobe pneumonia
Associated with poor appetite and general debility
Mucosal nodule found in the esophagus on EGD (as per high school academic coach)
2 cm hiatal hernia on EGD (as per high school academic coach)
Widely patent, non-obstructing and mild Schatzki ring on EGD (as per high school academic coach)
Erythematous mucosa in the antrum on EGD (as per high school academic coach)
Gastric erosions with no bleeding and no stigmata of recent bleeding on EGD (as per high school academic coach)
-Associated acute gait dysfunction due to weakness
-Stable on room air and afebrile. Procal is normal. Doubt active pneumonia .Hold on abx.
-Would need repeat CT chest in 3-4 weeks to follow on the consolidation.If no improvement to consider further diagnostic eval.
-Incentive spirometry
-Continue with PT/OT
-Per gastroenterology, okay to discharge patient -- egd with significant gastritis increase Protonix to 40 mg BID as outpatient
-Okay to continue usual diet
-Follow-up on biopsy results of EGD
-Follow-up with gastroenterology outpatient by next week: follow up outpatient next week 04/25/24 at 3:[address] Thompson
-Can consider increasing Remeron outpatient
Chronic history of constipation, pancreatic dilatation status post EUS x 2, gastropathy
- LFTs and Lipase are normal
- on PO PPI
-on bowel regimen
Dementia especially with short-term memory : oriented to name, son, daughter knows some of history
Moderate protein calorie malnutrition of chronic illness
- Lives alone in her own condo
- Continue Aricept 5 mg at bedtime at at bedtime
Hyperlipidemia
- Continue Atorvastatin 10 mg at bedtime
DM2 former now diet controlled
History of Bipolar disorder
- No current meds
History of Severe chronic back pain
Has Neurostimulator implant with removal
- Tylenol as needed
Other past medical history:
History of hiatal hernia
History of IBS
History of pancreatitis
DVT Prophylaxis: LMWH
Code Status: Full Code
More than 30 minutes spent in discharge including
Final examination of the patient
Summarizing hospital stay
Instructions for continuing care to all relevant caregivers
Preparation of discharge records, prescriptions, and referral forms
Total time spent (in minutes): 35
Anticipated Discharge: Today
Subjective/Interval History
-
Date of Service: April 23, 2024
Patient was seen and examined. No new symptoms or complaints.
Objective Data
-
Vital Signs:
Vital Signs
Temp Pulse Resp BP Pulse Ox
98.6 F 79 16 118/63 96
04/22/24 23:00 04/22/24 23:00 04/22/24 23:00 04/22/24 23:00 04/22/24 23:00
I&O
04/22/24 04/23/24 04/24/24
06:59 06:59 06:59
Intake Total 200 / 200
Output Total 300 / 300
Balance -100 / -100
[2024-04-23 07:49] VITALS: BP 109/62
[2024-04-23] MEDS: PROTONIX 40 MG PO ×2 (09:49→20:20)
[2024-04-23] MEDS: MIRALAX 17 GRAMS PO (09:49)
--- NOTE | 2024-04-23 14:45 | CM ---
Called [facility] regarding bed availability
Spoke with Patricia (on referral) [phone] who will add facility[facility] insurance authorization.
Stated that the daughter would prefer private room.
CM to follow-up tomorrow & obtain authorization
Will need updated PT/OT notes
PLAN: SNF, pending bed available, insurance authorization needed
[2024-04-23 15:36] VITALS: BP 112/62
[2024-04-23] MEDS: LOVENOX 40 MG SC (17:35)
[2024-04-23 20:46] VITALS: BP 118/74
[2024-04-23] MEDS: LIPITOR 10 MG PO (21:11)
[2024-04-23] MEDS: REMERON 15 MG PO (21:11)
[2024-04-23] MEDS: ARICEPT 5 MG PO (21:15)
[2024-04-23] MEDS: SENOKOT PO (22:30)
[2024-04-23 23:22] VITALS: BP 104/65
[2024-04-24] VITALS (7 sets, daily range): BP systolic 94–122; BP diastolic 57–70; PULSE 80; O2SAT 96
--- NOTE | 2024-04-24 06:30 | W.PN.GI.CBS2 ---
Today's Communication / Plan
-
Please see assessment and plan for details.
Assessment / Plan
-
IMPRESSION
1. Failure to thrive : Likely multifactorial, with pneumonia this admission, with other underlying comorbidities including dementia and bipolar. EGD was essentially negative, exam is benign, CT scan was limited though overall unremarkable. We are
called back for possible colonoscopy as underlying malignancy is not excluded though again clinically seems a bit less likely. She is unsure if she wants to proceed with colonoscopy. I will discussed with family about risks and benefits and goals
of care again today, we will preliminary put on clear liquid diet today.
Subjective
Subjective
Date of Service: April 24, 2024
Asked to see patient by report about possible colonoscopy as an inpatient. Patient feeling okay, denies any significant abdominal pain, no changes overnight, some mild epigastric pain. States that she did eat some yesterday, did have some bowel
movements. No fevers or chills.
Objective
Data Reviewed
Laboratory Data:
Laboratory Results
04/21/24 10:12
Laboratory Results
Magnesium 1.6 mg/dl (1.6-2.3) 04/21/24 10:12
Total Bilirubin 1.3 mg/dl (0.2-1.3) 04/16/24 13:23
AST 28 U/L (14-36) 04/16/24 13:23
ALT 14 U/L (0-35) 04/16/24 13:23
Alkaline Phosphatase 74 U/L (38-126) 04/16/24 13:23
Vital Signs and I&O:
Vital Signs
Temp Pulse Resp BP Pulse Ox
99.0 F 79 18 111/70 98
04/24/24 03:50 04/24/24 03:50 04/24/24 03:50 04/24/24 03:50 04/24/24 03:50
I&O
04/22/24 04/23/24 04/24/24
06:59 06:59 06:59
Intake Total 200 / 200 300 / 300
Output Total 300 / 300
Balance -100 / -100 300 / 300
Physical Exam
Physical Exam
General: NAD
Abdomen: normal bowel sounds, soft, no tenderness, no masses or bruits, no ascites
[2024-04-24 10:15] LABS: % Basophils 0.8 % (0-2); % Eosinophils 1.4 % (0-6); % Immature Granulocytes 0.6 % (0-0.5); % Lymphocytes 21.5 % (20.5-51.1); % Monocytes 13.6 % (1.7-9.3); % Neutrophils 62.1 % (42.2-75.2); Absolute Eosinophils 0.1 10^3/uL (0-0.7); Absolute Lymphocytes 1.1 10^3/uL (1.2-3.4); Absolute Monocytes 0.7 10^3/uL (0.1-0.6); Absolute Neutrophils 3.2 10^3/uL (1.4-6.5); Hematocrit 32.3 % (37.0-47.0); Hemoglobin 10.9 g/dL (12.0-16.0); Mean Corp Hgb Conc. 33.7 g/dL (33.0-37.0); Mean Corpuscular Hgb 29.8 pg (27.0-31.0); Mean Corpuscular Volume 88.3 fL (81.0-99.0); Mean Platelet Volume 10.1 fL (7.4-10.4); Nucleated Red Blood Cells % 0 %; Platelet Count 181 10^3/uL (130-400); Red Blood Cell Count 3.66 10^6/uL (4.20-5.40); Red Cell Dist. Width 14.2 % (11.5-14.5); White Blood Cell Count 5.2 10^3/uL (4.8-10.8)
[2024-04-24 10:18] LABS: Blood Urea Nitrogen 11 mg/dl (7-17); Carbon Dioxide 28 mmol/L (22-30); Chloride 102 mmol/L (98-107); Estimated Creatinine Clearance 52 ml/min; Glucose 77 mg/dl (70-99); Magnesium 1.8 mg/dl (1.6-2.3); Potassium 3.4 mmol/L (3.5-5.1); Sodium 141 mmol/L (135-145); eGFR > 60.00
[2024-04-24] MEDS: PROTONIX PO ×4 (11:04→21:42)
[2024-04-24] MEDS: MIRALAX PO (11:07)
--- NOTE | 2024-04-24 14:30 | W.PN.UPDATE ---
Update Note
Progress Note Update
I talked again to the patient, overall feeling okay, tolerating clears this morning. I talked again with the daughter at length. Will try to hold on colonoscopy as underlying colonic malignancy as the cause of her decreased appetite seems much
less likely, it is likely multifactorial, with recent pneumonia. She wishes to stop the Remeron as has not had much improvement and will do this and restart diet and encouraged intake. Will reevaluate tomorrow.
--- NOTE | 2024-04-24 14:35 | CM ---
CM reviewed chart, patient not stable for discharge at time. CM spoke with admissions at [facility], can offer patient a bed when stable, can offer private room. Patient will need auth when stable. CM will continue to follow for all
discharge planning needs.
Plan; [facility] SNF when stable, will need auth, will need updated OT notes.
--- NOTE | 2024-04-24 16:37 | W.PN.HOSP.TC ---
Today's Communication/Plan
-
Dr. Adair (Chief Vendor Quality) spoke with patient's daughter at length: no colonoscopy for now, Remeron stopped per patient's daughter's request, PO intake to be re-evaluated overnight going into tomorrow as per their discussion while patient is
in hospital. Greatly appreciate GI's assistance.
Assessment / Plan
Assessment / Plan
Physical Exam
General: No Apparent Distress
HEENT: Moist Mucous Membranes
Respiratory: Clear to Auscultation Bilaterally
Cardiac: Regular Rhythm and S1/S2
GI: Soft and Nontender. Positive bowel sounds.
Neuro: Awake, Alert and Oriented (self and person)
Psych: Calm and Confused
Assessment/Plan
Presentation with failure to thrive, poor oral intake and significant weight loss
Epigastric Pain
Recent Left lower lobe pneumonia
Associated with poor appetite and general debility
Mucosal nodule found in the esophagus on EGD (as per manufacturing process engineer)
2 cm hiatal hernia on EGD (as per manufacturing process engineer)
Widely patent, non-obstructing and mild Schatzki ring on EGD (as per manufacturing process engineer)
Erythematous mucosa in the antrum on EGD (as per manufacturing process engineer)
Gastric erosions with no bleeding and no stigmata of recent bleeding on EGD (as per manufacturing process engineer)
-Associated acute gait dysfunction due to weakness
-Stable on room air and afebrile. Procal is normal. Doubt active pneumonia .Hold on abx.
-Would need repeat CT chest in 3-4 weeks to follow on the consolidation.If no improvement to consider further diagnostic eval.
-Incentive spirometry
-Continue with PT/OT
-Per gastroenterology, okay to discharge patient -- egd with significant gastritis increase Protonix to 40 mg BID
-Okay to continue usual diet
-Follow-up on biopsy results of EGD
-Follow-up with gastroenterology outpatient by next week: follow up outpatient next week 04/25/24 at 3:[address] Thompson
-Dr. Adair (Chief Vendor Quality) spoke with patient's daughter at length: no colonoscopy for now, Remeron stopped per patient's daughter's request, PO intake to be re-evaluated overnight going into tomorrow
Chronic history of constipation, pancreatic dilatation status post EUS x 2, gastropathy
- LFTs and Lipase are normal
- on PO PPI
-on bowel regimen
Dementia especially with short-term memory : oriented to name, son, daughter knows some of history
Moderate protein calorie malnutrition of chronic illness
- Lives alone in her own condo
- Continue Aricept 5 mg at bedtime at at bedtime
Hyperlipidemia
- Continue Atorvastatin 10 mg at bedtime
DM2 former now diet controlled
History of Bipolar disorder
- No current meds
History of Severe chronic back pain
Has Neurostimulator implant with removal
- Tylenol as needed
Other past medical history:
History of hiatal hernia
History of IBS
History of pancreatitis
DVT Prophylaxis: LMWH
Code Status: Full Code
Anticipated Discharge: 24 - 48 hours
Subjective/Interval History
-
Date of Service: April 24, 2024
Patient was seen and examined. No new symptoms, not eating or drinking much.
Objective Data
-
Labs:
Laboratory Results
04/24/24
09:06
WBC 5.2
Hgb 10.9 L
Hct 32.3 L
Plt Count 181
Sodium 141
Potassium 3.4 L
Chloride 102
Carbon Dioxide 28
BUN 11
Creatinine 0.8
Glucose 77
Calcium 9.0
Vital Signs:
Vital Signs
Temp Pulse Resp BP Pulse Ox
98.4 F 71 19 121/66 98
04/24/24 15:08 04/24/24 15:08 04/24/24 15:08 04/24/24 15:08 04/24/24 15:08
I&O
04/23/24 04/24/24 04/25/24
06:59 06:59 06:59
Intake Total 200 / 200 300 / 300
Output Total 300 / 300
Balance -100 / -100 300 / 300
[2024-04-24] MEDS: KCL 260 MEQ IV (18:38)
[2024-04-24] MEDS: FLUSH (NSS) 1 FLUSH IV (18:39)
[2024-04-24] MEDS: LOVENOX 40 MG SC (18:46)
[2024-04-24] MEDS: SENOKOT PO (21:38)
[2024-04-24] MEDS: ARICEPT PO ×2 (21:39→21:42)
[2024-04-24] MEDS: LIPITOR PO ×2 (21:39→21:42)
--- NOTE | 2024-04-24 23:52 | PTCARENOTE ---
Patient had IV changed at 2100. Patient refused 1999 blood work. Patient refused night time medications. yard caller nurse practitioner made aware. No new orders.
[2024-04-25 04:09] VITALS: BP 127/64
[2024-04-25 07:00] VITALS: BP 108/61
--- NOTE | 2024-04-25 08:14 | W.PN.GI.CBS2 ---
Today's Communication / Plan
-
Please see assessment and plan for details.
Assessment / Plan
-
IMPRESSION
1. Failure to thrive : Likely multifactorial, with pneumonia this admission, with other underlying comorbidities including dementia and bipolar. EGD was essentially negative, exam is benign, CT scan was limited though overall unremarkable. I
again discussed with patient's family yesterday, trying to avoid colonoscopy if possible with again probably limited benefit. She does appear improved today, is brighter and more conversant, ate better, Remeron was DC'd yesterday. At this point if
she is doing well is okay to DC from GI standpoint, would hold on further invasive GI workup for now.
Subjective
Subjective
Date of Service: April 25, 2024
Patient states she is feeling better today, appears brighter, more conversant. States that she ate some dinner and breakfast this morning without difficulty, no vomiting, pain, fever or chills.
Objective
Data Reviewed
Laboratory Data:
Laboratory Results
04/24/24 09:06
Laboratory Results
Magnesium Cancelled 04/24/24 20:00
Total Bilirubin 1.3 mg/dl (0.2-1.3) 04/16/24 13:23
AST 28 U/L (14-36) 04/16/24 13:23
ALT 14 U/L (0-35) 04/16/24 13:23
Alkaline Phosphatase 74 U/L (38-126) 04/16/24 13:23
Vital Signs and I&O:
Vital Signs
Temp Pulse Resp BP Pulse Ox
97.9 F 70 18 108/61 100
04/25/24 07:00 04/25/24 07:00 04/25/24 07:00 04/25/24 07:00 04/25/24 07:00
I&O
04/24/24 04/25/24 04/26/24
06:59 06:59 06:59
Intake Total 300 / 300 320 / 320
Balance 300 / 300 320 / 320
Physical Exam
Physical Exam
General: NAD
Abdomen: normal bowel sounds, soft, no tenderness, no masses or bruits, no ascites
[2024-04-25] MEDS: MIRALAX PO (08:27)
[2024-04-25] MEDS: PROTONIX 40 MG PO (08:27)
[2024-04-25 08:36] LABS: ALT (SGPT) 13 U/L (0-35); AST (SGOT) 27 U/L (14-36); Albumin 3.7 g/dl (3.5-5.0); Alkaline Phosphatase 70 U/L (38-126); Blood Urea Nitrogen 10 mg/dl (7-17); Calcium 9.3 mg/dl (8.4-10.2); Carbon Dioxide 27 mmol/L (22-30); Chloride 103 mmol/L (98-107); Estimated Creatinine Clearance 60 ml/min; Glucose 103 mg/dl (70-99); Magnesium 1.8 mg/dl (1.6-2.3); Potassium 3.7 mmol/L (3.5-5.1); Sodium 141 mmol/L (135-145); Total Bilirubin 1.1 mg/dl (0.2-1.3); Total Protein 6.5 g/dl (6.3-8.2); eGFR > 60.00
--- NOTE | 2024-04-25 09:32 | CM ---
Addendum entered by Chastity Damon 04/25/24 13:09:
JEANIE updated daughter, scheduled for 5:00 p.m. ambulance transport.
Addendum entered by Chastity Damon 04/25/24 12:45:
CM placed call to patients insurance to check auth status, informed auth has been approved, 04/25-05/01, auth #[id number], call for review [phone]. JEANIE spoke with Yamini at [facility]- [facility] Amb[facility]
approved auth #[id number].
Addendum entered by Chastity Damon 04/25/24 10:54:
JEANIE spoke with patients insurance( ) to obtain auth, information being sent to [employer] for review due to patients Dementia. CM will await response regarding SNF approval.
Original Note:
CM reviewed chart, per Hospitalist, patient for discharge today. JEANIE spoke with patients daughter, Tia, discussed [facility] can accept patient for rehab today, does have a private room. CM will initiate auth for SNF. IMM reviewed with daughter,
verbally agreed, will place in chart. Patient will require ambulance transport. CM will continue to follow for all discharge planning needs.
Plan; [facility] once auth approved, will need ambulance transport.
[2024-04-25 10:28] VITALS: BP 117/70; PULSE 70; O2SAT 100
--- NOTE | 2024-04-25 10:48 | VATNOTE ---
Attempted to check pt's IV sites during routine rounds. Pt refused stating 'I'm tired, I'm tired, I'm tired of all this.' Pt educated about need for IV assessment, pt states 'they're fine, I'm tired of all this.' Asked it pt would please let me look
at her IV site for a moment, pt responded 'no.' Informed pt that I would document her declination of care.
[2024-04-25 11:20] VITALS: BP 102/71
--- NOTE | 2024-04-25 11:43 | W.PN.HOSP.TC ---
Today's Communication/Plan
-
Discharge today
Assessment / Plan
Assessment / Plan
Physical Exam
General: No Apparent Distress
HEENT: Moist Mucous Membranes
Respiratory: Clear to Auscultation Bilaterally
Cardiac: Regular Rhythm and S1/S2
GI: Soft and Nontender. Positive bowel sounds.
Neuro: Awake, Alert and Oriented (self and person)
Psych: Calm and Confused
Assessment/Plan
Presentation with failure to thrive, poor oral intake and significant weight loss
Epigastric Pain
Recent Left lower lobe pneumonia
Associated with poor appetite and general debility
Mucosal nodule found in the esophagus on EGD (as per mink farmer)
2 cm hiatal hernia on EGD (as per mink farmer)
Widely patent, non-obstructing and mild Schatzki ring on EGD (as per mink farmer)
Erythematous mucosa in the antrum on EGD (as per mink farmer)
Gastric erosions with no bleeding and no stigmata of recent bleeding on EGD (as per mink farmer)
-Associated acute gait dysfunction due to weakness
-Stable on room air and afebrile. Procal is normal. Doubt active pneumonia .Hold on abx.
-Would need repeat CT chest in 3-4 weeks to follow on the consolidation.If no improvement to consider further diagnostic eval.
-Incentive spirometry
-Continue with PT/OT
-Per gastroenterology, okay to discharge patient -- egd with significant gastritis increase Protonix to 40 mg BID
-Okay to continue usual diet
-Follow-up on biopsy results of EGD
-Follow-up with gastroenterology outpatient by next week: follow up outpatient next week 04/25/24 at 3:[address] Thompson
-Dr. Adair ([facility]) spoke with patient's daughter at length: no colonoscopy for now, Remeron stopped per patient's daughter's request
-Patient is doing better today, okay for discharge
Hypokalemia
-Replaced
-Recheck BMP outpatient
Chronic history of constipation, pancreatic dilatation status post EUS x 2, gastropathy
- LFTs and Lipase are normal
- on PO PPI
-on bowel regimen
Dementia especially with short-term memory : oriented to name, son, daughter knows some of history
Moderate protein calorie malnutrition of chronic illness
- Lives alone in her own condo
- Continue Aricept 5 mg at bedtime at at bedtime
Hyperlipidemia
- Continue Atorvastatin 10 mg at bedtime
DM2 former now diet controlled
History of Bipolar disorder
- No current meds
History of Severe chronic back pain
Has Neurostimulator implant with removal
- Tylenol as needed
Other past medical history:
History of hiatal hernia
History of IBS
History of pancreatitis
DVT Prophylaxis: LMWH
Code Status: Full Code
More than 30 minutes spent in discharge including
Final examination of the patient
Summarizing hospital stay
Instructions for continuing care to all relevant caregivers
Preparation of discharge records, prescriptions, and referral forms
Total time spent (in minutes): 40
Anticipated Discharge: Today
Subjective/Interval History
-
Date of Service: April 25, 2024
Patient was seen and examined. She denied any new significant symptoms or complaints.
Objective Data
-
Labs:
Laboratory Results
04/25/24
06:26
Sodium 141
Potassium 3.7
Chloride 103
Carbon Dioxide 27
BUN 10
Creatinine 0.7
Glucose 103 H
Calcium 9.3
Total Bilirubin 1.1
AST 27
ALT 13
Alkaline Phosphatase 70
Vital Signs:
Vital Signs
Temp Pulse Resp BP Pulse Ox
97.8 F 85 19 102/71 99
04/25/24 11:20 04/25/24 11:20 04/25/24 11:20 04/25/24 11:20 04/25/24 11:20
I&O
04/24/24 04/25/24 04/26/24
06:59 06:59 06:59
Intake Total 300 / 300 320 / 320
Balance 300 / 300 320 / 320
[2024-04-25 15:16] VITALS: BP 133/71
--- NOTE | 2024-04-25 17:03 | CM ---
[facility]
report# [phone]
fax# [phone]
== END 2024-04-25 17:51 | DRG 194 ==
LOC: 4 WEST ACU 14:44
PROVIDERS: Internal Medicine; Internal Medicine Gastroenterology; Nurse Practitioner; Nurse Practitioner Family; Registered Nurse; ADMITTING PHYSICIAN Internal Medicine; ATTENDING PHYSICIAN Hospitalist; CONSULT PHYSICIAN Specialist; EMERGENCY PHYSICIAN Emergency Medicine; FAMILY PHYSICIAN Family Medicine
PROC: 0DB58ZX Excision of Esophagus, Via Natural or Artificial Opening Endoscopic, Diagnostic (ICD-10-PCS; 2024-04-21)
PROC: 0DB68ZX Excision of Stomach, Via Natural or Artificial Opening Endoscopic, Diagnostic (ICD-10-PCS; 2024-04-21)
PROC: 0DB48ZX Excision of Esophagogastric Junction, Via Natural or Artificial Opening Endoscopic, Diagnostic (ICD-10-PCS; 2024-04-21)
PROC: 0DB98ZX Excision of Duodenum, Via Natural or Artificial Opening Endoscopic, Diagnostic (ICD-10-PCS; 2024-04-21)
DX: J18.9 Pneumonia, unspecified organism (principal); E44.0 Moderate protein-calorie malnutrition; F03.93 Unspecified dementia, unspecified severity, with mood disturbance; R62.7 Adult failure to thrive; E87.6 Hypokalemia; F31.9 Bipolar disorder, unspecified; E78.00 Pure hypercholesterolemia, unspecified; E11.9 Type 2 diabetes mellitus without complications; K20.0 Eosinophilic esophagitis; K44.9 Diaphragmatic hernia without obstruction or gangrene; K22.2 Esophageal obstruction; K22.89 Other specified disease of esophagus; K25.9 Gastric ulcer, unspecified as acute or chronic, without hemorrhage or perforation; K31.89 Other diseases of stomach and duodenum; Z68.22 Body mass index [BMI] 22.0-22.9, adult; R63.4 Abnormal weight loss
CPT/HCPCS: 88305; 80048; 80053; 83605; 83735; 84145; 85025; 85027; 87070; 87449; 87899; 88342; 97162; 97166; 97530; 99285